=== PATIENT | female | born 1965 | race Caucasian/White ===

== ENCOUNTER 2019-07-05 12:45 | Inpatient (IN) | payer MEDICAID, SELFPAY ==
[2019-07-05] VITALS (16 sets, daily range): BP systolic 106–144; BP diastolic 64–85; PULSE 81–103; RESP 17–24; TEMP 36.6–37.7; O2SAT 91–98; BMI 38.4
--- NOTE | 2019-07-05 12:46 | XRR_ITS ---
PROCEDURE INFORMATION: Exam: XR Chest, 1 View Exam date and time: 07/05/2019 12:48 PM Age: 54 years old Clinical indication: Chest pain; Type not specified; Additional info: Cp TECHNIQUE: Imaging protocol: XR of the chest Views: 1 view. COMPARISON: CR Chest 1 [place] [id number] 05/03/2019 10:45 AM FINDINGS: Tubes, catheters and devices: Right-sided chest port is in unchanged position. Lungs: There is no focal consolidation. Pleural space: There is no significant pleural effusion. There is no discernible pneumothorax. Heart/Mediastinum: No cardiomegaly. Diaphragm: Elevation of the right hemidiaphragm is stable to minimally increased. Bones/joints: There are mild multilevel degenerative changes of the spine. Oval left-sided rib fractures are again noted. XR/XR chest 1V portable [id number] IMPRESSION: 1. No acute findings.
--- NOTE | 2019-07-05 12:46 | ECG_ITS ---
Measurements Intervals [place] Rate: 102 P: 34 UT: 145 QRS: -42 QRSD: 92 T: -1 QT: 337 QTc: 440 SINUS TACHYCARDIA LEFT AXIS DEVIATION [QRS AXIS < -30] PATTERN CONSISTENT WITH PULMONARY DISEASE VOLTAGE CRITERIA FOR LVH [MEETS CRITERIA IN ONE OF: R(aVL), S(V1), R(V5), R(V5 (V5/V6)+S(V1)] INTERPRETATION BASED ON A DEFAULT AGE OF 40 YEARS Compared to ECG 05/03/2019 15:59:57 Left-axis deviation now present Sinus rhythm no longer present Left anterior fascicular block no longer present Myocardial infarct finding no longer present Electronically Signed On 07-05-2019 20:26:52 DOCUMENT DESIGN SPECIALIST by Pierre Catalan M.D. [email or web address]
--- NOTE | 2019-07-05 13:25 | W.ED.GENADLT ---
HPI - General Adult General: Chief complaint: General Medical Stated complaint: chest heaviness, sob Time Seen by Provider: 07/05/19 13:08 Source: patient, family and RN notes reviewed Mode of arrival: wheelchair Limitations: no limitations History of Present Illness: HPI narrative: 54 yo female presents to ED with complaints of upper respiratory issues and severe low back pain (the patient has 1 kidney). She said her symptoms have been getting worse over this past week. The patient states she is having difficulty breathing and it is worse with exertion. The patient states she has metastatic breast cancer and it has spread to her stomach. She hasn't felt like moving or eating because of her symptoms and due to her symptoms she missed her last chemo appointment because she was too weak to travel to [place], [place], where her oncologist is located. She has been trying to transfer to [place] but has not been able to get an appointment. The patient states she will receive extra fluids with every chemo treatment. The daughter said the patient has a history of low HGB and will receive a blood transfusion about every other treatment. The patient said she had 2 units of blood 1.5 weeks ago. The patient states she takes morphine for pain control but she forgot to take her medication today. MD complaint: difficulty breathing Onset (ago): week(s) (1) Location: chest and back Radiation: back (low) Severity: severe Quality: sharp and constant Pain Consistency: constant Relieving factors: none Exacerbating factors: movement and other (talking) Associated symptoms: Reports chest pain, cough, short of breath and weakness; Deny headache(s), nausea, rash or vomiting Treatments prior to arrival: none Review of Systems General: Reports: 10 or more systems reviewed and unremarkable except in HPI and below Const: Denies: fever, chills or body aches Eyes: Reports: blind spots; Denies: change in vision or blurry vision ENMT: Denies: throat pain, enlarged tonsils, painful swallowing, hoarseness, mouth pain or swelling of lips/tongue Card: Reports: chest pain Resp: Denies: productive cough or non-productive cough GI: Denies: abdominal pain, nausea or vomiting : Denies: flank pain, difficulty urinating, painful urination, urinary frequency, urinary urgency or urinary hesitancy Musc: Reports: back pain and limited range of motion; Denies: neck pain or extremity swelling Skin/Breast: Denies: rash, itching or redness Neuro: Denies: headache or numbness in extremities Endo: Denies: excessive urination, excessive thirst or tired all the time PFSH ED PFSH: Statuses (acute, chronic, etc) shown below reflect problem list status as previously entered and may not be historically accurate Medical History (Updated 07/05/19 @ 22:31 by Vipin Duarte MD, [facility] [place] BRCA positive (Acute) Breast cancer metastasized to intra-abdominal lymph nodes (Acute) Breast cancer, right (Acute) Hypertension (Acute) Infiltrating ductal carcinoma (Acute) Left leg DVT (Acute) Peripheral neuropathy (Acute) Pulmonary embolism (Acute) Type 2 diabetes mellitus (Acute) Surgical History (Updated 07/05/19 @ 20:30 by Sara Simpson MD) H/O bilateral oophorectomy (Acute) H/O breast reconstruction (Acute) H/O left nephrectomy (Acute) H/O: hysterectomy (Acute) History of prophylactic mastectomy of left breast (Acute) History of right total mastectomy (Acute) Family History (Updated 07/05/19 @ 20:30 by Sara Simpson MD) Father CAD (coronary artery disease) Mother Diabetes Mother has type 2 diabetes, sister with breast cancer grandmother with breast cancer Social History (Updated 07/05/19 @ 20:30 by Sara Simpson MD) Smoking and tobacco status: former smoker Alcohol intake: never Substance/Drug Use: never Household members: significant other Physical Exam Const: COMMON NORMALS: no apparent distress, average body habitus, oriented x3, no limitations, healthy appearing, alert and well nourished HENMT: COMMON NORMALS: normocephalic, head/scalp atraumatic and moist oral mucous membranes HEAD & SCALP: normocephalic and atraumatic Eye: COMMON NORMALS: PERRL, EOMs intact bilaterally, conjunctivae normal and no scleral icterus CONJUNCTIVA: Yes conjunctivae normal PUPIL: Yes PERRL Neck/C-Spine: COMMON NORMALS: full ROM, supple, no meningeal signs, no JVD and no carotid bruits Chest: COMMONS NORMALS: inspection of chest normal and palpation of chest normal Resp: COMMON NORMALS: normal respiratory effort, no retractions, no use of accessory muscles, clear to auscultation bilaterally and percussion normal AUSCULTATION: clear to auscultation bilaterally PERCUSSION: percussion normal Cardio: COMMON NORMALS: no JVD, regular rate, regular rhythm, S1 normal heart sound, S2 normal heart sound, no gallops, no clicks, no murmurs, no rub and peripheral pulses 2+ throughout RATE: regular rate RHYTHM: regular rhythm HEART SOUNDS: S1 normal and S2 normal PERIPHERAL PULSES: pulses 2+ throughout GI: COMMON NORMALS: normal to inspection, nondistended, normoactive bowel sounds, soft to palpation, non-tender, no hepatosplenomegaly, no masses and no bruits PALPATION: Yes soft and Yes no hepatosplenomegaly : COMMON NORMALS: Yes no CVA tenderness BLADDER/KIDNEY EXAM: Yes no CVA tenderness Back/Pelvis: COMMON NORMALS: no CVA tenderness LUMBAR SPINE/LOWER BACK: Yes lumbar spinal tenderness Extremity: COMMON NORMALS: normal to inspection, full ROM, normal capillary refill, no calf tenderness and no pedal edema Neuro: COMMON NORMALS: oriented x3 SENSORIUM/ORIENTATION: Yes alert MENINGEAL SIGNS: Yes no meningeal signs Skin: COMMON NORMALS: no rashes or lesions noted, no wounds, skin turgor normal, no jaundice, no petechiae and no mottling GENERAL SKIN EXAM: no rashes or lesions noted and turgor normal Course Consultations: Consultation #1: Dr. Simpson, hospitalist. He kindly accepted the patient to his service. Vital Signs: Vital signs: Vital Signs Temperature 98.9 F 07/05/19 21:33 Pulse Rate 103 H 07/05/19 21:33 Respiratory Rate 24 H 07/05/19 21:33 Blood Pressure 136/79 07/05/19 21:33 Pulse Oximetry 91 07/05/19 21:33 MDM - General Adult MDM Narrative: Medical decision making narrative: 54 year old female who has metastatic breast cancer and presented to the emergency department with back pain and extreme weakness. Evaluation in the ED revealed severe anemia needing packed red blood cell transfusion. She is also hyponatremic, has acute kidney injury, and had elevated troponin but delta was flat. Her pain was difficult to control and needed several doses of intravenous narcotic analgesics to keep her pain under control. CT scan of her thoracic spine showed possible degenerative disease or osteoblastic lesions in her spine. CT of her abdomen showed enlarging of the retroperitoneal mass and pancreatic mass compared to the last time she had a CT scan done. She also has features possibly suggesting cholecystitis, however this has been seen in her previous scan. The patient has a history of PE but had not been taking her anticoagulation regularly due to financial costs. A VQ scan done was equivocal. She will resume her Eliquis. The patient also is trying to transition her oncology care from [place] to [place] but has been unable to get in to see the oncologist here locally. Because of all of the above she is admitted for pain control, hydration, blood transfusion, and scheduling an appointment with the oncologist locally. She also needs social support and social media strategist will be contacted to assist the patient. Medical Records: Attestation: I reviewed the patient's medical records. Lab Data: Attestation: I reviewed the patient's lab results. Labs: Lab Results 07/05/19 07/05/19 07/05/19 Range/Units 13:30 13:30 13:30 WBC 8.8 (4.0-10.0) 10^3/ uL RBC 2.60 L (4.1-5.3) 10^6/u L Hgb 6.2 L* (11.5-15.3) g/dL Hct 21.4 L (37.0-47.0) % MCV 82.3 (81-99) fL MCH 23.8 L (28.0-34.0) pg MCHC 29.0 L (30.0-36.0) g/dL RDW 21.5 H (12.1-15.1) % Plt Count 204 (130-400) 10^3/c mm MPV 9.3 (7.4-10.4) fL Neut % (Auto) 78.9 % Lymph % (Auto) 11.6 % Gregory % (Auto) 7.5 % Eos % (Auto) 0.7 % Baso % (Auto) 0.7 % Neut # (Auto) 7.0 (1.8-7.7) 10^3/u L Lymph # (Auto) 1.0 (0.8-4.8) 10^3/u L Gregory # (Auto) 0.7 (0.2-0.9) 10^3/u L Eos # (Auto) 0.1 (0.0-0.8) 10^3/u L Baso # (Auto) 0.1 (0.0-0.1) 10^3/u L Nucleated RBC % (a uto) 0 % Nucleated RBCs # 0.0 /100WBC D-Dimer (0-0.59) ug/mIFE U Sodium 129 L (136-145) mmol/L Potassium 4.3 (3.5-5.1) mmol/L Chloride 92 L (98-107) mmol/L Carbon Dioxide 19 L (22-29) mmol/L Anion Gap 22.3 H (5-19) BUN 19 (6-20) mg/dL Creatinine 1.3 H (0.5-0.9) mg/dL GFR Calculation 42.4 L (90-130) mL/min Glucose 464 H (74-109) mg/dL Calcium 9.3 (8.5-10.5) mg/dL Total Bilirubin 0.5 (0.15-1.2) mg/dL AST 13 (0-32) U/L ALT 6 (0-33) U/L Alkaline Phosphata se 191 H (35-105) IU/L Troponin T Baselin e 50 H (0-10) ng/mL Troponin T 120 Min [place] (0-10) ng/mL Delta Troponin T (0-10) ABS# NT-Pro-B Natriuret Pep 2146 H (0-125) pg/mL Total Protein 8.1 (6.6-8.7) g/dL Albumin 2.6 L (3.5-5.2) g/dL Globulin 5.5 H (1.3-4.6) g/dL Urine Color (Yellow) Urine Appearance (CLEAR) Urine pH (5-7) Ur Specific Gravit y (1.005-1.030) Urine Protein (Negative) Urine Glucose (UA) (Normal) Urine Ketones (Negative) Urine Occult Blood (Negative) Urine Nitrate (Negative) Urine Bilirubin (NEGATIVE) Urine Urobilinogen (Negative) mg/dL Ur Leukocyte Ruby ase (Negative) Urine RBC (0-2) /hpf Urine WBC (0-5) /hpf Ur Squamous Epith Cells (0-5) Urine Bacteria (NONE) Urine Mucus Blood Type Antibody Screen Crossmatch 07/05/19 07/05/19 07/05/19 Range/Units 13:30 14:25 15:48 WBC (4.0-10.0) 10^3/ uL RBC (4.1-5.3) 10^6/u L Hgb (11.5-15.3) g/dL Hct (37.0-47.0) % MCV (81-99) fL MCH (28.0-34.0) pg MCHC (30.0-36.0) g/dL RDW (12.1-15.1) % Plt Count (130-400) 10^3/c mm MPV (7.4-10.4) fL Neut % (Auto) % Lymph % (Auto) % Gregory % (Auto) % Eos % (Auto) % Baso % (Auto) % Neut # (Auto) (1.8-7.7) 10^3/u L Lymph # (Auto) (0.8-4.8) 10^3/u L Gregory # (Auto) (0.2-0.9) 10^3/u L Eos # (Auto) (0.0-0.8) 10^3/u L Baso # (Auto) (0.0-0.1) 10^3/u L Nucleated RBC % (a uto) % Nucleated RBCs # /100WBC D-Dimer >= 20.00 H (0-0.59) ug/mIFE U Sodium (136-145) mmol/L Potassium (3.5-5.1) mmol/L Chloride (98-107) mmol/L Carbon Dioxide (22-29) mmol/L Anion Gap (5-19) BUN (6-20) mg/dL Creatinine (0.5-0.9) mg/dL GFR Calculation (90-130) mL/min Glucose (74-109) mg/dL Calcium (8.5-10.5) mg/dL Total Bilirubin (0.15-1.2) mg/dL AST (0-32) U/L ALT (0-33) U/L Alkaline Phosphata se (35-105) IU/L Troponin T Baselin e (0-10) ng/mL Troponin T 120 Min [place] 46.07 H (0-10) ng/mL Delta Troponin T -3.93 L (0-10) ABS# NT-Pro-B Natriuret Pep (0-125) pg/mL Total Protein (6.6-8.7) g/dL Albumin (3.5-5.2) g/dL Globulin (1.3-4.6) g/dL Urine Color (Yellow) Urine Appearance (CLEAR) Urine pH (5-7) Ur Specific Gravit y (1.005-1.030) Urine Protein (Negative) Urine Glucose (UA) (Normal) Urine Ketones (Negative) Urine Occult Blood (Negative) Urine Nitrate (Negative) Urine Bilirubin (NEGATIVE) Urine Urobilinogen (Negative) mg/dL Ur Leukocyte Ruby ase (Negative) Urine RBC (0-2) /hpf Urine WBC (0-5) /hpf Ur Squamous Epith Cells (0-5) Urine Bacteria (NONE) Urine Mucus Blood Type O Positive Antibody Screen Negative Crossmatch See Detail 07/05/19 Range/Units 19:00 WBC (4.0-10.0) 10^3/ uL RBC (4.1-5.3) 10^6/u L Hgb (11.5-15.3) g/dL Hct (37.0-47.0) % MCV (81-99) fL MCH (28.0-34.0) pg MCHC (30.0-36.0) g/dL RDW (12.1-15.1) % Plt Count (130-400) 10^3/c mm MPV (7.4-10.4) fL Neut % (Auto) % Lymph % (Auto) % Gregory % (Auto) % Eos % (Auto) % Baso % (Auto) % Neut # (Auto) (1.8-7.7) 10^3/u L Lymph # (Auto) (0.8-4.8) 10^3/u L Gregory # (Auto) (0.2-0.9) 10^3/u L Eos # (Auto) (0.0-0.8) 10^3/u L Baso # (Auto) (0.0-0.1) 10^3/u L Nucleated RBC % (a uto) % Nucleated RBCs # /100WBC D-Dimer (0-0.59) ug/mIFE U Sodium (136-145) mmol/L Potassium (3.5-5.1) mmol/L Chloride (98-107) mmol/L Carbon Dioxide (22-29) mmol/L Anion Gap (5-19) BUN (6-20) mg/dL Creatinine (0.5-0.9) mg/dL GFR Calculation (90-130) mL/min Glucose (74-109) mg/dL Calcium (8.5-10.5) mg/dL Total Bilirubin (0.15-1.2) mg/dL AST (0-32) U/L ALT (0-33) U/L Alkaline Phosphata se (35-105) IU/L Troponin T Baselin e (0-10) ng/mL Troponin T 120 Min [place] (0-10) ng/mL Delta Troponin T (0-10) ABS# NT-Pro-B Natriuret Pep (0-125) pg/mL Total Protein (6.6-8.7) g/dL Albumin (3.5-5.2) g/dL Globulin (1.3-4.6) g/dL Urine Color Yellow (Yellow) Urine Appearance Cloudy (CLEAR) Urine pH 6 (5-7) Ur Specific Gravit y 1.015 (1.005-1.030) Urine Protein 3+ H (Negative) Urine Glucose (UA) 4+ H (Normal) Urine Ketones Negative (Negative) Urine Occult Blood Neg (Negative) Urine Nitrate Negative (Negative) Urine Bilirubin Neg (NEGATIVE) Urine Urobilinogen Norm (Negative) mg/dL Ur Leukocyte Ruby ase Negative (Negative) Urine RBC 0-4 H (0-2) /hpf Urine WBC 10-15 H (0-5) /hpf Ur Squamous Epith Cells 5-10 H (0-5) Urine Bacteria 2+ H (NONE) Urine Mucus 2+ Blood Type Antibody Screen Crossmatch Imaging Data^: Other CT: Radiologist's impression: [address] [address] [address] Scan Report Signed Patient: Maxine Villalba #: [id number] : 1965Acct#:[id number] Age/Sex: 54 / FADM Date: 07/05/19 Loc: ERRoom/Bed: Attending Dr: Ordering Provider/Ordering MD: Vipin Duarte MD, [facility] [place] of Service: 07/05/19 Procedure(s): CT lumbar spine wo con* [id number] Accession Number(s): [id number] Report Number: [id number] PROCEDURE INFORMATION: Exam: CT Lumbar Spine Without Contrast Exam date and time: 07/05/2019 3:28 PM Age: 54 years old Clinical indication: Low back pain; Patient HX: Sudden onset of severe back pain. History of metastatic breast cancer. ; Additional info: Back pain, patient with metastatic breast cancer TECHNIQUE: Imaging protocol: Computed tomography images of the lumbar spine without contrast. Total DLP: 2397.86 mGy-cm Radiation optimization: All CT scans at this facility use at least one of these dose optimization techniques: automated exposure control; mA and/or kV adjustment per patient size (includes targeted exams where dose is matched to clinical indication); or iterative reconstruction. COMPARISON: No relevant prior studies available. FINDINGS: Vertebrae: Vertebral body heights are preserved. There is no evidence of acute fracture or traumatic subluxation. There is moderate facet arthrosis at the L5-S1 level. There is mild sclerosis along the anterior inferior endplate of T12. No other suspicious osseous findings. Discs/Spinal canal/Neural foramina: There is disc space narrowing and vacuum disc phenomenon at the T11-T12 and T12-L1 levels. Lumbar intervertebral disc space heights are preserved. There is no high-grade osseous central canal or neural foraminal stenosis. Kidneys and ureters: There is partially imaged right perinephric stranding. There is lobulated soft tissue density anterior to the lumbar spine from the L1 through L4 levels. Soft tissues: Metallic clips are noted within the left upper abdomen. The left kidney is not visualized and may be surgically absent. CT/CT lumbar spine wo con* [id number] IMPRESSION: 1. No CT evidence of acute fracture or traumatic subluxation involving the lumbar spine. 2. Mild-moderate facet arthrosis at the L5-S1 level. 3. Partially imaged right perinephric stranding, which is of uncertain clinical significance. There is questionable lobulated soft tissue density anterior to the lumbar spine from the L1 through L4 levels. Although findings may reflect overlap/summation, given the patient's history of metastatic breast cancer, retroperitoneal adenopathy versus retroperitoneal mass cannot be excluded. Correlate with dedicated CT of the abdomen and pelvis as warranted. 4. For thoracic findings please see dedicated CT dated same day. Radiation Dose CTDIVOL = (mGy): DLP = 2397.86 (mGy-cm) Dictated By:Tonny Franklin MD Signed By:Tonny Franklin MDSigned Date/Time:07/05/19 1631 DD/ [facility] [address] [place] [address] CT Scan Report Signed Patient: Maxine Villalba #: [id number] : 1965Acct#:[id number] Age/Sex: 54 / FADM Date: 07/05/19 Loc: ERRoom/Bed: Attending Dr: Ordering Provider/Ordering MD: Vipin Duarte MD, [facility] [facility] [place] of Service: 07/05/19 Procedure(s): CT thoracic spin wo con* [id number] Accession Number(s): [id number] Report Number: [id number] PROCEDURE INFORMATION: Exam: CT Thoracic Spine Without Contrast Exam date and time: 07/05/2019 3:29 PM Age: 54 years old Clinical indication: Pain in thoracic spine; Prior surgery; Surgery type: Chest port; Patient HX: Sudden onset of severe back pain. History of metastatic breast cancer. ; Additional info: Back pain. Patient with metastatic breast cancer TECHNIQUE: Imaging protocol: Computed tomography images of the thoracic spine without contrast. Total DLP: 2299.32 mGy-cm Radiation optimization: All CT scans at this facility use at least one of these dose optimization techniques: automated exposure control; mA and/or kV adjustment per patient size (includes targeted exams where dose is matched to clinical indication); or iterative reconstruction. COMPARISON: No relevant prior studies available. FINDINGS: Tubes, catheters and devices: Partially imaged right-sided Port-A-Cath is noted with tip at the level of the cavoatrial junction. Vertebrae: Small multilevel Schmorl's nodes are noted. Vertebral body heights are otherwise preserved. There is no evidence of acute fracture. There are multilevel degenerative changes with endplate osteophyte formation and facet arthrosis. There are multiple subtle sclerotic regions scattered throughout the thoracic spine, most notably along the anterior inferior aspect of the T12 vertebral body. Discs/Spinal canal/Neural foramina: There is mild multilevel disc space narrowing with vacuum disc phenomenon, greatest involving the lower thoracic spine. There is no high-grade osseous central canal or neural foraminal stenosis throughout the thoracic spine. Soft tissues: There is a partially imaged 5.8 x 3.4 cm left supraclavicular mass (image 14, series 3). Lungs: There is bilateral dependent subsegmental atelectasis. There is mild biapical pleural parenchymal thickening. Pleural space: There is a small right pleural effusion. Kidneys and ureters: There is mild right perinephric stranding. Adrenals: There is mild nodular thickening of the left adrenal gland. CT/CT thoracic spin wo con* [id number] IMPRESSION: 1. No CT evidence of an acute osseous abnormality. 2. Mild-moderate multilevel degenerative change, greatest involving the lower thoracic spine. 3. Subtle sclerotic lesions scattered throughout the thoracic spine may reflect a component of degenerative change. Given the patient's history of metastatic breast cancer, osteoblastic disease cannot be entirely excluded. Correlation with prior imaging is suggested with bone scan as warranted. 4. Partially imaged right perinephric stranding. If right flank symptoms are present, further evaluation with abdominal/pelvic CT could be performed. 5. Partially imaged left supraclavicular mass. Correlation with prior imaging is suggested with dedicated CT as warranted. 6. Small right pleural effusion. 7. Mild nonspecific nodular thickening of the left adrenal gland. Correlation with prior imaging suggested. Radiation Dose CTDIVOL = (mGy): DLP = 2299.32 (mGy-cm) Dictated By:Tonny Franklin MD Signed By:Tonny Franklin MDSigned Date/Time:07/05/19 1642 DD/ Other Imaging: Radiologist's impression: [address] [address] Nuclear Medicine Report Signed Patient: Maxine Villalba #: [id number] : 1965Acct#:[id number] Age/Sex: 54 / FADM Date: 07/05/19 Loc: ERRoom/Bed: Attending Dr: Ordering Provider/Ordering MD: Vipin Duarte MD, [facility] [facility] [place] of Service: 07/05/19 Procedure(s): NM pul vent and perfus* [id number] Accession Number(s): [id number] Report Number: [id number] PROCEDURE INFORMATION: Exam: NM Lung Ventilation and Perfusion Imaging Exam date and time: 07/05/2019 3:55 PM Age: 54 years old Clinical indication: Pain; Other: Multiple areas; Prior surgery; Surgery date: 6+ months; Surgery type: Bilat mastectomy; Patient HX: Metastatic RT breast CA; Additional info: SOB, elevated d-dimer. Prior pe. Stopped her anticoagulatio TECHNIQUE: Imaging protocol: Nuclear pulmonary ventilation with aerosol or gas was performed followed by perfusion. Views: Ventilation acquired with multiple projections. Perfusion acquired with multiple projections. Radiopharmaceutical: 30.4 mCi of Tc-99m DTPA, inhaled. 5.3 mCi of Tc-99m MAA, IV. COMPARISON: CR (CHEST, ) 07/05/2019 1:04 PM FINDINGS: Ventilation: There is a moderate size defect within the left basilar segment. Perfusion: There is a moderate size defect within the left basilar segment. NM/NM pul vent and perfus* [id number] IMPRESSION: 1. Intermediate probability V/Q is equivocal for PE. Correlate with CT pulmonary angiography as warranted. Dictated By:Tonny Franklin MD Signed By:Tonny Franklin MDSigned Date/Time:07/05/19 1705 DD/ CXR: Radiologist's impression: [address] [address] XRay Report Signed Patient: Maxine Villalba #: [id number] : 1965Acct#:[id number] Age/Sex: 54 / FADM Date: 07/05/19 [facility] Attending Dr: Ordering Provider/Ordering MD: Zane Haskins MD Date of Service: 07/05/19 Procedure(s): XR chest 1V portable [id number] Accession Number(s): [id number] Report Number: [id number] PROCEDURE INFORMATION: Exam: XR Chest, 1 View Exam date and time: 07/05/2019 12:48 PM Age: 54 years old Clinical indication: Chest pain; Type not specified; Additional info: Cp TECHNIQUE: Imaging protocol: XR of the chest Views: 1 view. COMPARISON: CR Chest 1 [place] [id number] 05/03/2019 10:45 AM FINDINGS: Tubes, catheters and devices: Right-sided chest port is in unchanged position. Lungs: There is no focal consolidation. Pleural space: There is no significant pleural effusion. There is no discernible pneumothorax. Heart/Mediastinum: No cardiomegaly. Diaphragm: Elevation of the right hemidiaphragm is stable to minimally increased. Bones/joints: There are mild multilevel degenerative changes of the spine. Oval left-sided rib fractures are again noted. XR/XR chest 1V portable [id number] IMPRESSION: 1. No acute findings. Dictated By:Tonny Franklin MD Signed By:Tonny Franklin MDSigned Date/Time:07/05/19 1346 DD/ CT Abd/Pel: Radiologist's impression: [place] [address] CT Scan Report Signed Patient: Maxine Villalba #: [id number] : 1965Acct#:[id number] Age/Sex: 54 / FADM Date: 07/05/19 Loc: ERRoom/Bed: Attending Dr: Ordering Provider/Ordering MD: Vipin Duarte MD, [facility] [place] of Service: 07/05/19 Procedure(s): CT abdomen pelvis wo con [id number] Accession Number(s): [id number] Report Number: [id number] PROCEDURE INFORMATION: Exam: CT Abdomen And Pelvis Without Contrast Exam date and time: 07/05/2019 5:37 PM Age: 54 years old Clinical indication: Abdominal pain; Generalized; Prior surgery; Surgery type: Breast; Patient HX: Trainsient abd pain; Additional info: Metastatic breast cancer, abdominal pain TECHNIQUE: Imaging protocol: Computed tomography of the abdomen and pelvis without contrast. Total DLP: 2059.72 mGy-cm Radiation optimization: All CT scans at this facility use at least one of these dose optimization techniques: automated exposure control; mA and/or kV adjustment per patient size (includes targeted exams where dose is matched to clinical indication); or iterative reconstruction. COMPARISON: KO CT abdomen pelvis w con* [id number] 03/16/2019 5:47 PM FINDINGS: Lungs: There is a subtle ground-glass opacity within the anterior right middle lobe (image 2, series 2). The visualized lung bases are otherwise clear. Liver: There is mild unchanged intrahepatic ductal dilation. Gallbladder and bile ducts: Cholelithiasis is again noted. There is moderate gallbladder distention with unchanged wall thickening and adjacent inflammatory stranding. There is mild intrahepatic ductal dilation. Pancreas: There is been interval progression of the previously described heterogeneous mass involving the pancreatic head and kaleb hepatis. Spleen: There is unchanged splenomegaly. Adrenals: Nodular thickening of the left adrenal gland appears stable to minimally increased, concerning for metastatic disease. Kidneys and ureters: The left kidney is surgically absent. Multiple clips are noted within the left renal fossa. There is a mild right perinephric stranding. There is no evidence of hydronephrosis. Stomach and bowel: No obstruction. No mucosal thickening. Appendix: No evidence of appendicitis. Intraperitoneal space: No free air. There is a small amount of right perihepatic and right pericolic fluid. Vasculature: Unremarkable. No abdominal aortic aneurysm. Lymph nodes: There has been interval progression of bulky retroperitoneal, upper abdominal and periaortic lymphadenopathy with the largest conglomeration measuring approximately 13.8 x 8.3 cm in the axial plane with associated mass effect (image 29, series 2). Hypoattenuating regions centrally suggest a component of necrosis. Bulky right retroperitoneal adenopathy has also progressed. Bladder: Unremarkable as visualized. Reproductive: Unremarkable as visualized. Bones/joints: There are no acute osseous findings. Subtle sclerotic regions within the lower thoracic spine are again noted. Soft tissues: Partially imaged bilateral breast implants are in place. CT/CT abdomen pelvis wo con [id number] IMPRESSION: 1. Cholelithiasis with unchanged distention of the gallbladder with gallbladder wall thickening and adjacent inflammatory stranding. There is mild unchanged intrahepatic ductal dilation. There is a small amount of right Cheli hepatic fluid. Constellation of findings can be associated with acute cholecystitis. Correlate with right upper quadrant ultrasound as warranted. 2. There has been interval progression of the previously described large heterogeneous mass involving the pancreatic head, kaleb hepatis and gallbladder. There has been interval progression of bulky retroperitoneal and upper abdominal lymphadenopathy with associated mass effect. Subtle hypo attenuating regions centrally suggest a component of early necrosis. 3. Nodular thickening of the left adrenal gland appears stable to minimally progressed concerning for metastatic disease. 4. Subtle ground-glass opacity within the anterior right middle lobe likely reflects atelectasis. Nonspecific inflammatory or infectious change can have a similar appearance and clinical correlation is suggested. Radiation Dose CTDIVOL = (mGy): DLP = 2059.72 (mGy-cm) Dictated By:Tonny Franklin MD Signed By:Tonny Franklin MDSigned Date/Time:07/05/19 1824 DD/ Discharge Plan Discharge Patient Disposition: Admitted As Inpatient Admit Provider: Sara Simpson Clinical Impression: Anemia, Acute hyponatremia, Acute kidney injury, Metastatic breast cancer, History of pulmonary embolism Condition: Stable Interventions: ED Discharge Assessment Last Done: 07/05/19 20:45 Discharge Date/Time: 07/05/19 21:19 Coding Level of Care Code ED Electric Meter Tester Helper for Chg Fwd Exam Problem Focused
[2019-07-05] MEDS: morphine 4 mg/mL SDV 1 mL 10 MG IVP ×2 (13:52→15:53)
[2019-07-05 13:54] LABS: Basophils # 0.1 10^3/uL (0.0-0.1); Basophils % 0.7 %; Eosinophils # 0.1 10^3/uL (0.0-0.8); Eosinophils % 0.7 %; Hematocrit 21.4 % (37.0-47.0); Lymphocytes % 11.6 %; Mean Corpuscular Hemoglobin 23.8 pg (28.0-34.0); Mean Corpuscular Volume 82.3 fL (81-99); Mean Platelet Volume 9.3 fL (7.4-10.4); Monocytes # 0.7 10^3/uL (0.2-0.9); Monocytes % 7.5 %; Neutrophils % 78.9 %; Nucleated Red Blood Cells % 0 %; Platelet Count 204 10^3/cmm (130-400); Red Cell Distribution Width 21.5 % (12.1-15.1); White Blood Count 8.8 10^3/uL (4.0-10.0)
[2019-07-05 13:59] LABS: Hemoglobin 6.2 g/dL (11.5-15.3)
--- NOTE | 2019-07-05 14:11 | PC.NURSE ---
PORT ACCESS OBTAINED WITHOUT DIFFICULTY, 19G 1 INCH PORT-A-CATH INSERTED, GOOD BLOOD RETURN, FLUSHES EASILY. BLOOD DRAWN FROM PORT FOR LAB. PT TOLERATED WELL.
[2019-07-05 14:19] LABS: Troponin(5th) Baseline 50 ng/mL (0-10)
[2019-07-05 14:26] LABS: Alanine Aminotransferase 6 U/L (0-33); Albumin Level 2.6 g/dL (3.5-5.2); Alkaline Phosphatase 191 IU/L (35-105); Anion Gap 22.3 (5-19); Aspartate Amino Transferase 13 U/L (0-32); Blood Urea Nitrogen 19 mg/dL (6-20); Calcium 9.3 mg/dL (8.5-10.5); Carbon Dioxide 19 mmol/L (22-29); Chloride 92 mmol/L (98-107); Globulin 5.5 g/dL (1.3-4.6); Glomerular Filtration Rate 42.4 mL/min (90-130); Glucose 464 mg/dL (74-109); NT Pro B Type Natriuretic Pept 2146 pg/mL (0-125); Potassium 4.3 mmol/L (3.5-5.1); Sodium 129 mmol/L (136-145); Total Bilirubin 0.5 mg/dL (0.15-1.2); Total Protein 8.1 g/dL (6.6-8.7)
[2019-07-05 14:29] LABS: D Dimer >= 20.00 ug/mIFEU (0-0.59)
--- NOTE | 2019-07-05 14:32 | PC.NURSE ---
EKG performed and shown to ED physician.
--- NOTE | 2019-07-05 14:37 | PC.PHAR ---
PT STATES SHE IS UNSURE OF ALL THE MEDICATIONS SHE TAKES, PT STATES SHE TAKES 2 KINDS OF INSULIN BUT ISNT SURE OF THE NAMES, PT STATES SHE FILLS MEDS AT [facility] AND [facility] IS NOT OPEN TODAY TO VERIFY MEDS
--- NOTE | 2019-07-05 14:39 | NMR_ITS ---
PROCEDURE INFORMATION: Exam: NM Lung Ventilation and Perfusion Imaging Exam date and time: 07/05/2019 3:55 PM Age: 54 years old Clinical indication: Pain; Other: Multiple areas; Prior surgery; Surgery date: 6+ months; Surgery type: Bilat mastectomy; Patient HX: Metastatic RT breast CA; Additional info: SOB, elevated d-dimer. Prior pe. Stopped her anticoagulatio TECHNIQUE: Imaging protocol: Nuclear pulmonary ventilation with aerosol or gas was performed followed by perfusion. Views: Ventilation acquired with multiple projections. Perfusion acquired with multiple projections. Radiopharmaceutical: 30.4 mCi of Tc-99m DTPA, inhaled. 5.3 mCi of Tc-99m MAA, IV. COMPARISON: CR (CHEST, ) 07/05/2019 1:04 PM FINDINGS: Ventilation: There is a moderate size defect within the left basilar segment. Perfusion: There is a moderate size defect within the left basilar segment. NM/NM pul vent and perfus* [id number] IMPRESSION: 1. Intermediate probability V/Q is equivocal for PE. Correlate with CT pulmonary angiography as warranted.
--- NOTE | 2019-07-05 14:46 | ECG_ITS ---
Measurements Intervals [place] Rate: 95 P: 29 WV: 142 QRS: 105 QRSD: 104 T: 57 QT: 372 QTc: 469 SINUS RHYTHM PATTERN CONSISTENT WITH PULMONARY DISEASE POSSIBLE RIGHT VENTRICULAR HYPERTROPHY [SOME/ALL OF: PROMINENT R IN V1, LATE HERNANDEZ TRANSITION, RAD, ALMAS, SSS] POSSIBLE INFERIOR MYOCARDIAL INFARCTION , PROBABLY OLD [30 ms Q WAVE IN II/aVF] INTERPRETATION BASED ON A DEFAULT AGE OF 40 YEARS Compared to ECG 05/03/2019 15:59:57 Atrial abnormality now present Left anterior fascicular block no longer present Myocardial infarct finding still present Electronically Signed On 07-06-2019 21:04:06 PATIENT RESOURCE SPECIALIST by Pierre Catalan M.D. [id number]
--- NOTE | 2019-07-05 15:18 | CTR_ITS ---
PROCEDURE INFORMATION: Exam: CT Lumbar Spine Without Contrast Exam date and time: 07/05/2019 3:28 PM Age: 54 years old Clinical indication: Low back pain; Patient HX: Sudden onset of severe back pain. History of metastatic breast cancer. ; Additional info: Back pain, patient with metastatic breast cancer TECHNIQUE: Imaging protocol: Computed tomography images of the lumbar spine without contrast. Total DLP: 2397.86 mGy-cm Radiation optimization: All CT scans at this facility use at least one of these dose optimization techniques: automated exposure control; mA and/or kV adjustment per patient size (includes targeted exams where dose is matched to clinical indication); or iterative reconstruction. COMPARISON: No relevant prior studies available. FINDINGS: Vertebrae: Vertebral body heights are preserved. There is no evidence of acute fracture or traumatic subluxation. There is moderate facet arthrosis at the L5-S1 level. There is mild sclerosis along the anterior inferior endplate of T12. No other suspicious osseous findings. Discs/Spinal canal/Neural foramina: There is disc space narrowing and vacuum disc phenomenon at the T11-T12 and T12-L1 levels. Lumbar intervertebral disc space heights are preserved. There is no high-grade osseous central canal or neural foraminal stenosis. Kidneys and ureters: There is partially imaged right perinephric stranding. There is lobulated soft tissue density anterior to the lumbar spine from the L1 through L4 levels. Soft tissues: Metallic clips are noted within the left upper abdomen. The left kidney is not visualized and may be surgically absent. CT/CT lumbar spine wo con* [id number]: 1[address] No CT evidence of acute fracture or traumatic subluxation involving the lumbar spine. 2. Mild-moderate facet arthrosis at the L5-S1 level. 3. Partially imaged right perinephric stranding, which is of uncertain clinical significance. There is questionable lobulated soft tissue density anterior to the lumbar spine from the L1 through L4 levels. Although findings may reflect overlap/summation, given the patient's history of metastatic breast cancer, retroperitoneal adenopathy versus retroperitoneal mass cannot be excluded. Correlate with dedicated CT of the abdomen and pelvis as warranted. 4. For thoracic findings please see dedicated CT dated same day. Radiation Dose CTDIVOL = (mGy): DLP = 2397.86 (mGy-cm)
--- NOTE | 2019-07-05 15:18 | CTR_ITS ---
PROCEDURE INFORMATION: Exam: CT Thoracic Spine Without Contrast Exam date and time: 07/05/2019 3:29 PM Age: 54 years old Clinical indication: Pain in thoracic spine; Prior surgery; Surgery type: Chest port; Patient HX: Sudden onset of severe back pain. History of metastatic breast cancer. ; Additional info: Back pain. Patient with metastatic breast cancer TECHNIQUE: Imaging protocol: Computed tomography images of the thoracic spine without contrast. Total DLP: 2299.32 mGy-cm Radiation optimization: All CT scans at this facility use at least one of these dose optimization techniques: automated exposure control; mA and/or kV adjustment per patient size (includes targeted exams where dose is matched to clinical indication); or iterative reconstruction. COMPARISON: No relevant prior studies available. FINDINGS: Tubes, catheters and devices: Partially imaged right-sided Port-A-Cath is noted with tip at the level of the cavoatrial junction. Vertebrae: Small multilevel Schmorl's nodes are noted. Vertebral body heights are otherwise preserved. There is no evidence of acute fracture. There are multilevel degenerative changes with endplate osteophyte formation and facet arthrosis. There are multiple subtle sclerotic regions scattered throughout the thoracic spine, most notably along the anterior inferior aspect of the T12 vertebral body. Discs/Spinal canal/Neural foramina: There is mild multilevel disc space narrowing with vacuum disc phenomenon, greatest involving the lower thoracic spine. There is no high-grade osseous central canal or neural foraminal stenosis throughout the thoracic spine. Soft tissues: There is a partially imaged 5.8 x 3.4 cm left supraclavicular mass (image 14, series 3). Lungs: There is bilateral dependent subsegmental atelectasis. There is mild biapical pleural parenchymal thickening. Pleural space: There is a small right pleural effusion. Kidneys and ureters: There is mild right perinephric stranding. Adrenals: There is mild nodular thickening of the left adrenal gland. CT/CT thoracic spin wo con* [id number]: 1[address] No CT evidence of an acute osseous abnormality. 2. Mild-moderate multilevel degenerative change, greatest involving the lower thoracic spine. 3. Subtle sclerotic lesions scattered throughout the thoracic spine may reflect a component of degenerative change. Given the patient's history of metastatic breast cancer, osteoblastic disease cannot be entirely excluded. Correlation with prior imaging is suggested with bone scan as warranted. 4. Partially imaged right perinephric stranding. If right flank symptoms are present, further evaluation with abdominal/pelvic CT could be performed. 5. Partially imaged left supraclavicular mass. Correlation with prior imaging is suggested with dedicated CT as warranted. 6. Small right pleural effusion. 7. Mild nonspecific nodular thickening of the left adrenal gland. Correlation with prior imaging suggested. Radiation Dose CTDIVOL = (mGy): DLP = 2299.32 (mGy-cm)
[2019-07-05 16:20] LABS: Troponin 5 2HR 46.07 ng/mL (0-10)
[2019-07-05 16:21] LABS: Troponin 5 2HR Delta -3.93 ABS# (0-10)
--- NOTE | 2019-07-05 17:27 | CTR_ITS ---
PROCEDURE INFORMATION: Exam: CT Abdomen And Pelvis Without Contrast Exam date and time: 07/05/2019 5:37 PM Age: 54 years old Clinical indication: Abdominal pain; Generalized; Prior surgery; Surgery type: Breast; Patient HX: Trainsient abd pain; Additional info: Metastatic breast cancer, abdominal pain TECHNIQUE: Imaging protocol: Computed tomography of the abdomen and pelvis without contrast. Total DLP: 2059.72 mGy-cm Radiation optimization: All CT scans at this facility use at least one of these dose optimization techniques: automated exposure control; mA and/or kV adjustment per patient size (includes targeted exams where dose is matched to clinical indication); or iterative reconstruction. COMPARISON: KO CT abdomen pelvis w con* [id number] 03/16/2019 5:47 PM FINDINGS: Lungs: There is a subtle ground-glass opacity within the anterior right middle lobe (image 2, series 2). The visualized lung bases are otherwise clear. Liver: There is mild unchanged intrahepatic ductal dilation. Gallbladder and bile ducts: Cholelithiasis is again noted. There is moderate gallbladder distention with unchanged wall thickening and adjacent inflammatory stranding. There is mild intrahepatic ductal dilation. Pancreas: There is been interval progression of the previously described heterogeneous mass involving the pancreatic head and kaleb hepatis. Spleen: There is unchanged splenomegaly. Adrenals: Nodular thickening of the left adrenal gland appears stable to minimally increased, concerning for metastatic disease. Kidneys and ureters: The left kidney is surgically absent. Multiple clips are noted within the left renal fossa. There is a mild right perinephric stranding. There is no evidence of hydronephrosis. Stomach and bowel: No obstruction. No mucosal thickening. Appendix: No evidence of appendicitis. Intraperitoneal space: No free air. There is a small amount of right perihepatic and right pericolic fluid. Vasculature: Unremarkable. No abdominal aortic aneurysm. Lymph nodes: There has been interval progression of bulky retroperitoneal, upper abdominal and periaortic lymphadenopathy with the largest conglomeration measuring approximately 13.8 x 8.3 cm in the axial plane with associated mass effect (image 29, series 2). Hypoattenuating regions centrally suggest a component of necrosis. Bulky right retroperitoneal adenopathy has also progressed. Bladder: Unremarkable as visualized. Reproductive: Unremarkable as visualized. Bones/joints: There are no acute osseous findings. Subtle sclerotic regions within the lower thoracic spine are again noted. Soft tissues: Partially imaged bilateral breast implants are in place. CT/CT abdomen pelvis wo con [id number] IMPRESSION: 1. Cholelithiasis with unchanged distention of the gallbladder with gallbladder wall thickening and adjacent inflammatory stranding. There is mild unchanged intrahepatic ductal dilation. There is a small amount of right Cheli hepatic fluid. Constellation of findings can be associated with acute cholecystitis. Correlate with right upper quadrant ultrasound as warranted. 2. There has been interval progression of the previously described large heterogeneous mass involving the pancreatic head, kaleb hepatis and gallbladder. There has been interval progression of bulky retroperitoneal and upper abdominal lymphadenopathy with associated mass effect. Subtle hypo attenuating regions centrally suggest a component of early necrosis. 3. Nodular thickening of the left adrenal gland appears stable to minimally progressed concerning for metastatic disease. 4. Subtle ground-glass opacity within the anterior right middle lobe likely reflects atelectasis. Nonspecific inflammatory or infectious change can have a similar appearance and clinical correlation is suggested. Radiation Dose CTDIVOL = (mGy): DLP = 2059.72 (mGy-cm)
[2019-07-05] MEDS: HYDROmorphone 1 mg/mL INJ 1 mL IVP ×2 (19:19→21:18)
[2019-07-05] MEDS: ondansetron 2 mg/ML SDV 2 mL 4 MG IVP (19:19)
[2019-07-05] MEDS: sodium chloride 0.9% 100 ML 75 ML (19:22)
[2019-07-05 19:37] LABS: Protein Urine 3+ (Negative); Specific Gravity, Urine 1.015 (1.005-1.030); Urine Appearance Cloudy (CLEAR); Urine Color Yellow (Yellow); pH Urine 6 (5-7)
[2019-07-05 19:38] LABS: Add Urine Culture? Yes; Add Urine Microscopic? YES; Bacteria Urine 2+; Bilirubin Urine Neg (NEGATIVE); Blood Urine Neg (Negative); Glucose Urine UA 4+ (Normal); Ketones Urine Negative (Negative); Leukocyte Esterase Urine Negative (Negative); Mucus Urine 2+; Nitrate Urine Negative (Negative); RBC Urine 0-4 /hpf (0-2); Urobilinogen Urine Norm (Negative)
--- NOTE | 2019-07-05 20:26 | P.HP_ITS ---
Providers/Chief Complaint Admitting Physician: Sara Simpson MD Primary Care Provider: Sofy Cruz, LEAD SPRINK[employer]ER-C Chief Complaint: chest heaviness, sob History of Present Illness Maxine Villalba is a 54 year old female who has infiltrating ductal carcinoma with metastases to abdomen, she was seeing oncologist at [place] and recently decided to see Dr. Armenta because now she is very weak to travel to [place] came in with chief complaint of extreme lethargy generalized weakness and shortness of breath. Patient is stating that for last couple of weeks she has been very tired extremely lethargic needs assistance for her daily activities, has been feeling short of breath on mild exertion her complexion has been very pale. She gets 3-4 episodes of vomiting almost every day, she feels she is very dehydrated. She has not seen Dr. Armenta for now and is requesting an appointment with him during this visit. Her last chemotherapy session was 2 weeks ago, she is stating that after 2-3 episodes of chemotherapy she requires blood transfusion, no etiology has been found for her drop in hemoglobin. She is still on Eliquis for DVT and PE. She has not noticed any worsening of her chronic abdominal pain, she described abdominal pain as lower back pain which does not radiate towards her groin, she is denying dysuria. She is denying any blood in her stool, urine or hemoptysis. She endorses to feeling dehydrated because of vomiting, poor p.o. intake. Diagnostics in ER showed normal hemodynamics, hemoglobin of 6.2, thoracic CT showed degenerative changes of spine, CT abdomen showed mild perinephric stranding but patient does not have acute CVA tenderness, there is no fever or leukocytosis, She has received 1 unit of PRBC in the ER, she was feeling really weak to go [place] hence hospital service was requested to observe her overnight While I was in the room she said her vision is getting blurred, I put her in Trendelenburg position, blood pressure was 130/70, she was saturating 85% on room air, she was put on 3 to nasal cannula, her vision improved after oxygenation, blood sugar was greater than 400mg/dl Review of Systems Const: Reports: chills, body aches, change in appetite, fatigue and malaise; Denies: fever Eyes: Reports: change in vision and blurry vision ENMT: Denies: throat pain Card: Denies: chest pain, palpitations or irregular heart rhythm Resp: Reports: shortness of breath and non-productive cough; Denies: wheezing or change in phlegm color GI: Reports: abdominal pain, nausea, vomiting and heartburn/indigestion; Denies: constipation, bloating, change in bowel habits or blood in stool : Denies: flank pain, difficulty urinating, painful urination, urinary frequency, urinary urgency or nighttime urination Musc: Reports: back pain, joint pain and muscle weakness; Denies: neck pain Skin/Breast: Denies: rash Neuro: Denies: headache Psych: Reports: anxiety and depression Endo: Denies: excessive urination Bg/Lymph: Denies: easy bruising All/Imm: Denies: hives Medications/Allergies Home Medications Medication Instructions Recorded Confirmed Last Taken Type apixaban [Eliquis] 5 mg PO DAILY 07/05/19 07/05/19 Unknown History citalopram 20 mg PO DAILY 07/05/19 07/05/19 Unknown History gabapentin 100 mg PO BID 07/05/19 07/05/19 Unknown History glipizide 5 mg PO DAILY 07/05/19 07/05/19 Unknown History insulin aspart U-100 [Novolog See Rx Instructions .ROUTE .COMPLEX 07/05/19 07/05/19 Unknown History PenFill U-100 Insulin] lorazepam 0.5 mg PO Q4H PRN 07/05/19 07/05/19 Unknown History morphine 15 mg PO Q8H 07/05/19 07/05/19 07/04/19 History ondansetron HCl 4 mg PO TID 07/05/19 07/05/19 Unknown History pantoprazole [Protonix] 40 mg PO BID 07/05/19 07/05/19 Unknown History Allergies Allergy/AdvReac Type Severity Reaction Status Date / Time acetaminophen [From Percocet] Allergy Severe ALGY-Rash Verified 07/05/19 14:37 oxycodone [From Percocet] Allergy Severe ALGY-Rash Verified 07/05/19 14:37 PFSH Acute PFSH: Statuses (acute, chronic, etc) shown below reflect problem list status as previously entered and may not be historically accurate Medical History (Updated 07/05/19 @ 22:31 by Vipin Duarte MD, [facility] [place]) BRCA positive (Acute) Breast cancer metastasized to intra-abdominal lymph nodes (Acute) Breast cancer, right (Acute) Hypertension (Acute) Infiltrating ductal carcinoma (Acute) Left leg DVT (Acute) Peripheral neuropathy (Acute) Pulmonary embolism (Acute) Type 2 diabetes mellitus (Acute) Surgical History (Updated 07/05/19 @ 20:30 by Sara Simpson MD) H/O bilateral oophorectomy (Acute) H/O breast reconstruction (Acute) H/O left nephrectomy (Acute) H/O: hysterectomy (Acute) History of prophylactic mastectomy of left breast (Acute) History of right total mastectomy (Acute) Family History (Updated 07/05/19 @ 20:30 by Sara Simpson MD) Father CAD (coronary artery disease) Mother Diabetes Mother has type 2 diabetes, sister with breast cancer grandmother with breast cancer Social History (Updated 07/05/19 @ 20:30 by Sara Simpson MD) Smoking and tobacco status: former smoker Alcohol intake: never Substance/Drug Use: never Household members: significant other Vitals/I&O/Wt Last Vital Signs Temp 97.9 F 07/05/19 19:30 Pulse 82 07/05/19 19:30 Resp 18 07/05/19 19:30 BP 139/75 07/05/19 19:30 Pulse Ox 94 07/05/19 19:30 07/05/19 07/05/19 07/05/19 06:59 14:59 22:59 Intake Total 0 / 0 Balance 0 / 0 Weight last 48 hrs Weight 117.934 kg Physical Exam Narrative: EXAM NARRATIVE: Patient was put in Trendelenburg position when she complained of blurry vision which improved after oxygenation, currently she is on 3 L nasal cannula, blood pressure 133/70, heart rate 70 S1-S2 no active signs of heart failure murmur no JVD. Breath sounds bilateral diminished however no adventitious sounds Abdomen is soft, distended, with obesity positive, mild tenderness on deep palpation around abdominal flanks, no CVA tenderness elicited Dry cracked lips, seems dehydrated No lower extremity edema No active bruising purpura or petechia on skin Muscle mass loss, hair loss positive, fat redistribution positive EOMI, PERRLA Data : 07/05/19 13:30 07/05/19 13:30 A&P Assessment and plan (1) Anemia: Status: Acute Qualifiers: Other causes of anemia: chronic disease, neoplastic Code(s): D64.9 - Anemia, unspecified (2) Acute hyponatremia: Status: Acute Code(s): E87.1 - Hypo-osmolality and hyponatremia (3) Acute kidney injury: Status: Acute Code(s): N17.9 - Acute kidney failure, unspecified (4) Metastatic breast cancer: Status: Acute Code(s): C50.919 - Malignant neoplasm of unspecified site of unspecified female breast (5) History of pulmonary embolism: Status: Acute Code(s): Z86.711 - Personal history of pulmonary embolism Additional A&P Information Acute on chronic anemia Low normal MCV We will check iron studies Her white count platelet counts are normal Splenomegaly on CT abdomen evident Patient is on Eliquis for DVT and PE no active source of bleeding I believe this is secondary to splenomegaly with hypersplenism which gets worse after chemotherapy, risk factors and complications of anticoagulation should be readdressed in the morning 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 Armenta and is requesting an appointment during her visit Dehydration causing hyponatremia and SHERYL I will give her second unit of leuko-reduced PRBC Normal saline at 50 cc/h Recheck BMP in the morning I would hold her Eliquis for now, Please readdress DVT prophylaxis once her hemoglobin is better and she is hemodynamically stable I am reluctant to use SCDs because of previous history of left leg DVT Type 2 diabetes with poorly controlled blood sugar currently hyperglycemic Consistent carbohydrate diet Moderate dose sliding scale CT abdomen showing perinephric stranding but patient is afebrile, no leukocytosis, her abdomen pain is chronic which is non radiating Monitor her vitals and white count if she becomes symptomatic or becoming septic will use antibiotics otherwise I will hold off for now Full code Attestations Medical Necessity Statement*: Will admit outpatient as observation for now for blood transfusion Time Spent in Patient Care: 60 Coding Level of Care Code Acute Procurement Technician for g Fwd Diagnoses Anemia D64.9 Other causes of anemia: chronic disease, neoplastic Acute hyponatremia E87.1 Acute kidney injury N17.9 Metastatic breast cancer C50.919 History of pulmonary embolism Z86.711
[2019-07-05] MEDS: LORazepam 0.5 mg Tablet PO (21:54)
[2019-07-05 22:44] LABS: Glucose Point of Care 427 mg/dL (70-110)
[2019-07-05] MEDS: ondansetron 4 MG Tablet PO (22:48)
[2019-07-05] MEDS: morphine ER (12 HR) 15 mg Tablet PO (22:48)
[2019-07-05] MEDS: sennosides 8.6 mg Tablet 17.2 MG PO (22:48)
[2019-07-06] VITALS (17 sets, daily range): BP systolic 94–136; BP diastolic 62–77; PULSE 74–96; RESP 18–26; TEMP 36.8–37.3; O2SAT 93–96
[2019-07-06] MEDS: sodium chloride 0.9% 100 ML 150 ML (02:58)
[2019-07-06] MEDS: sodium chloride 0.9% 1,000 ML 30 ML IV (03:09)
[2019-07-06 05:26] LABS: Basophils # 0.1 10^3/uL (0.0-0.1); Basophils % 0.5 %; Eosinophils # 0.1 10^3/uL (0.0-0.8); Eosinophils % 1.3 %; Hematocrit 26.2 % (37.0-47.0); Hemoglobin 8.2 g/dL (11.5-15.3); Lymphocytes # 1.2 10^3/uL (0.8-4.8); Lymphocytes % 12.4 %; Mean Corpuscular HGB Conc 31.3 g/dL (30.0-36.0); Mean Corpuscular Hemoglobin 25.2 pg (28.0-34.0); Mean Corpuscular Volume 80.4 fL (81-99); Mean Platelet Volume 9.3 fL (7.4-10.4); Monocytes # 0.9 10^3/uL (0.2-0.9); Monocytes % 9.5 %; Neutrophils # 7.2 10^3/uL (1.8-7.7); Neutrophils % 75.7 %; Nucleated Red Blood Cells % 0 %; Platelet Count 160 10^3/cmm (130-400); Red Blood Count 3.26 10^6/uL (4.1-5.3); Red Cell Distribution Width 19.4 % (12.1-15.1); White Blood Count 9.6 10^3/uL (4.0-10.0)
[2019-07-06] MEDS: morphine ER (12 HR) 15 mg Tablet PO ×3 (06:15→20:40)
[2019-07-06 06:22] LABS: Anion Gap 16.1 (5-19); Blood Urea Nitrogen 22 mg/dL (6-20); Calcium 9.4 mg/dL (8.5-10.5); Carbon Dioxide 22 mmol/L (22-29); Chloride 98 mmol/L (98-107); Glomerular Filtration Rate 35.9 mL/min (90-130); Glucose 201 mg/dL (74-109); Osmolality Calculated 276 mOsm/kg (285-295); Potassium 4.1 mmol/L (3.5-5.1); Sodium 132 mmol/L (136-145)
[2019-07-06 06:40] LABS: Glucose Point of Care 202 mg/dL (70-110)
[2019-07-06] MEDS: pantoprazole DR 40 mg Tablet PO ×2 (08:33→18:10)
[2019-07-06] MEDS: gabapentin 100 mg Capsule PO ×2 (08:33→18:10)
[2019-07-06] MEDS: citalopram 20 mg Tablet PO (08:35)
[2019-07-06] MEDS: ondansetron 4 MG Tablet PO ×3 (08:35→22:43)
[2019-07-06] MEDS: HYDROmorphone 1 mg/mL INJ 1 mL IVP ×2 (10:03→18:09)
[2019-07-06 11:24] LABS: Glucose Point of Care 292 mg/dL (70-110)
--- NOTE | 2019-07-06 11:54 | PC.NURSE ---
DR SANTANA VISITED WITH PT ABOUT DIAGNOSIS OF BREAST CANCER ALONG WITH BIOPSY OF THE TUMOR IN HER ABDOMEN, PT STATED SHE HAD A BIOPSY HERE IN [place] AND AGAIN IN [place] WHERE SHE WAS RECEIVING CHEMO AND IMMUNO THERAPY. ASKED HER ABOUT TAKING ELIQUIS FOR HER BLOOD CLOT IN HER LEG AND PT STATED SHE HAS NOT BEEN ABLE TO AFFORD THE MEDICATION AND SO SHE HAS NOT TAKEN IT IN THE PAST [address] SANTANA IS WANTING TO DO AN ULTRASOUND OF THE LEGS TO SEE WHAT CHANGES HAVE OCCURRED WITH THE BLOOD CLOT, MENTION OF A POSSIBLE IVC FILTER WAS MENTIONED WELL. DR SANTANA ASKED PT ABOUT CODE STATUS AND IF SHE WANTED CHEST COMPRESSION OR TO BE INTUBATED INCASE HER HEART STOPS BEATING, SHE STATED SHE WANTED TO THINK ABOUT IT. PT CODE STATUS IS FULL AT THIS TIME.
--- NOTE | 2019-07-06 12:08 | P.PN_ITS ---
Subjective Subjective: Interval history: Patient reports mild nonspecific across left and right chest pain that she thinks started yesterday and is constant without any alleviating or aggravating factors. She reports minimal shortness of breath. She denies abdominal pain or problems with bowel movement. Reports that in the last 2 days she noticed some burning on urination. Reports upper extremity swelling and she is getting her IV fluids through right arm. No erythema noted. Denies cough. PTH and vitamin D is low. She denies taking large amount of vitamin A. She does take 1 multivitamin tablet daily. Reports that she wants to go home as soon as possible as she is missing her dogs. Vitals/I&O/Wt Last Vital Signs Temp 99.1 F 07/06/19 10:53 Pulse 94 07/06/19 10:53 Resp 18 07/06/19 10:53 BP 94/62 07/06/19 10:53 Pulse Ox 93 07/06/19 10:53 07/05/19 07/06/19 07/06/19 22:59 06:59 14:59 Intake Total 1050 / 1050 750 / 1800 240 / 240 Output Total 300 / 300 Balance 1050 / 1050 450 / 1500 240 / 240 Weight last 48 hrs Weight 117.934 kg Physical Exam Const: COMMON NORMALS: no apparent distress and oriented x3 Eye: CONJUNCTIVA: Yes conjunctiva abnormal OTHER: Both eyes are injected. Resp: COMMON NORMALS: normal respiratory effort and clear to auscultation bilaterally AUSCULTATION: clear to auscultation bilaterally Cardio: COMMON NORMALS: regular rate, regular rhythm and S2 normal heart sound RATE: regular rate RHYTHM: regular rhythm HEART SOUNDS: S2 normal GI: COMMON NORMALS: normal to inspection, nondistended, normoactive bowel sounds, soft to palpation and non-tender PALPATION: Yes soft Extremity: COMMON NORMALS: normal to inspection OTHER: No lower extremity edema bilaterally. Neuro: COMMON NORMALS: oriented x3 Data : 07/06/19 04:44 07/06/19 04:44 A&P Assessment and plan (1) Anemia: Status: Acute Qualifiers: Other causes of anemia: chronic disease, neoplastic Code(s): D64.9 - Anemia, unspecified (2) Acute hyponatremia: Status: Acute Code(s): E87.1 - Hypo-osmolality and hyponatremia (3) Acute kidney injury: Status: Acute Code(s): N17.9 - Acute kidney failure, unspecified (4) Metastatic breast cancer: Status: Acute Code(s): C50.919 - Malignant neoplasm of unspecified site of unspecified female breast (5) History of pulmonary embolism: Status: Acute Code(s): Z86.711 - Personal history of pulmonary embolism Additional A&P Information Acute on chronic anemia Low normal MCV We will check iron studies Her white count platelet counts are normal Splenomegaly on CT abdomen evident Patient is on Eliquis for DVT and PE no active source of bleeding I believe this is secondary to splenomegaly with hypersplenism which gets worse after chemotherapy, risk factors and complications of anticoagulation should be readdressed in the morning 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 Armenta and is requesting an appointment during her visit Dehydration causing hyponatremia and SHERYL I will give her second unit of leuko-reduced PRBC Normal saline at 50 cc/h Recheck BMP in the morning I would hold her Eliquis for now, Please readdress DVT prophylaxis once her hemoglobin is better and she is hemodynamically stable I am reluctant to use SCDs because of previous history of left leg DVT Type 2 diabetes with poorly controlled blood sugar currently hyperglycemic Consistent carbohydrate diet Moderate dose sliding scale CT abdomen showing perinephric stranding but patient is afebrile, no leukocytosis, her abdomen pain is chronic which is non radiating Monitor her vitals and white count if she becomes symptomatic or becoming septic will use antibiotics otherwise I will hold off for now Full code Coding Level of Care Code 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
[2019-07-06] MEDS: lanolin oint 7 gm 1 APPLIC TOPICAL (13:02)
--- NOTE | 2019-07-06 13:07 | P.PN_ITS ---
Subjective Subjective: Interval history: Patient reports being very weak but denies shortness of breath or chest pain. Denies abdominal pain. She was diagnosed with triple negative breast cancer approximately 16 years ago and underwent treatment in [facility] which included daina motherapy and bilateral mastectomy. In March last year she presented with left lower extremity DVT/PE and found to have pelvic mass which was biopsied showing undifferentiated carcinoma which was consistent with metastatic disease from breast primary. Lung, esophagus, endometrium, ovary, thyroid and salivary gland primary felt less likely. Patient reports that at [facility] she had also biopsy procedure performed and she was told that that was consistent with breast primary and she was started on chemotherapy and immunotherapy. Her last treatment was 2 weeks ago. Patient has been very weak since then. She reports that her masses are increasing in size and not responding to treatment. She reports that there was a genetic test performed and unfortunately no other imm unotherapy can match. Patient wants to continue with care here in [place] and requests to see Dr. Armenta. Discussed case with Dr. Armenta and he will see patient either later today or tomorrow. Patient reports that for the last 1 months she was not taking any anticoagulation as her Eliquis ran out and it was too expensive to buy. Vitals/I&O/Wt Last Vital Signs Temp 99.1 F 07/06/19 10:53 Pulse 94 07/06/19 10:53 Resp 18 07/06/19 10:53 BP 94/62 07/06/19 10:53 Pulse Ox 93 07/06/19 10:53 07/05/19 07/06/19 07/06/19 22:59 06:59 14:59 Intake Total 1050 / 1050 750 / 1800 240 / 240 Output Total 300 / 300 Balance 1050 / 1050 450 / 1500 240 / 240 Weight last 48 hrs Weight 117.934 kg Physical Exam Const: COMMON NORMALS: oriented x3 Resp: COMMON NORMALS: normal respiratory effort and clear to auscultation bilaterally AUSCULTATION: clear to auscultation bilaterally Cardio: COMMON NORMALS: regular rate, regular rhythm and S2 normal heart sound RATE: regular rate RHYTHM: regular rhythm HEART SOUNDS: S2 normal GI: COMMON NORMALS: normal to inspection, nondistended, normoactive bowel sounds, soft to palpation and non-tender PALPATION: Yes soft Neuro: COMMON NORMALS: oriented x3 and no focal motor deficits Data : 07/06/19 04:44 07/06/19 04:44 A&P Assessment and plan (1) Anemia: Status: Acute Qualifiers: Other causes of anemia: chronic disease, neoplastic Code(s): D64.9 - Anemia, unspecified (2) Acute hyponatremia: Status: Acute Code(s): E87.1 - Hypo-osmolality and hyponatremia (3) Acute kidney injury: Status: Acute Code(s): N17.9 - Acute kidney failure, unspecified (4) Metastatic breast cancer: Status: Acute Code(s): C50.919 - Malignant neoplasm of unspecified site of unspecified female breast (5) History of pulmonary embolism: Status: Acute Code(s): Z86.711 - Personal history of pulmonary embolism Additional A&P Information I had extensive discussion with patient regarding plans of treatment. It appears that the patient has overall poor prognosis. We will await for Dr. Armenta's evaluation. I will request bilateral lower extremity venous ultrasound and patient will consider IVC filter placement to avoid PEs. Continue with IV fluids and will give 1 more unit of blood to boost patient's energy Will request physical therapy. Attestations Medical Necessity Statement*: Patient with significant anemia and generalized weakness requires close inpatient monitoring, treatment and evaluation. Time Spent in Patient Care: Greater than 35 minutes (>than 50% of time spent in counselling and/or direct pt care on unit) . 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
--- NOTE | 2019-07-06 13:23 | USCV_ITS ---
Maxine Villalba Age: 54 Gender: F : 1965 Exam Date: 07/06/2019 15:12 Ordering Phys: Deshawn Gillespie MD Technologist: Ashley Eaton Exam Location: [facility] [place] Indication: DVT HISTORY: History of deep venous thrombosis. PROCEDURES: Venous duplex imaging was performed in bilateral lower extremities. The following venous structures were evaluated: common femoral vein, profunda vein, proximal portion of the greater saphenous vein, superficial femoral vein, and the popliteal vein. In addition, the posterior tibial and peroneal trunk were evaluated. Serial compression and spectral Doppler flow evaluation were performed. FINDINGS: RIGHT: Complete occlusion of the mid common femoral vein. Partial occlusion in the superior common femoral vein. Superficial thrombophlebitis noted in the entire greater saphenous vein. Question possible thrombosis in one of the mid peroneal veins. LEFT: Complete occlusion mid common femoral vein. Partion occlusion proximal common femoral vein. Partion occlusion femoral vein. Superficial thrombophlebitis of the entire greater saphenous vein. CONCLUSIONS RIGHT: Complete occlusion of the mid common femoral vein. Partial occlusion in the superior common femoral vein. Superficial thrombophlebitis greater saphenous vein. Suspected thrombus in one of the mid peroneal veins. LEFT: Complete occlusion mid common femoral vein. Subtotal occlusion proximal common femoral vein. Partial occlusion femoral vein. Superficial thrombophlebitis greater saphenous vein. Carlos Neal MD (Electronically Signed) Final Date: 06 July 2019 16:12 S
[2019-07-06 16:44] LABS: Glucose Point of Care 324 mg/dL (70-110)
[2019-07-06] MEDS: ondansetron 2 mg/ML SDV 2 mL 4 MG IVP (18:09)
[2019-07-06 21:48] LABS: Glucose Point of Care 224 mg/dL (70-110)
[2019-07-06] MEDS: sennosides 8.6 mg Tablet 17.2 MG PO (22:43)
[2019-07-07] VITALS (13 sets, daily range): BP systolic 98–148; BP diastolic 58–82; PULSE 85–100; RESP 12–20; TEMP 36.2–38.1; O2SAT 85–96
[2019-07-07] MEDS: HYDROmorphone 1 mg/mL INJ 1 mL IVP ×2 (02:49→08:43)
[2019-07-07] MEDS: morphine ER (12 HR) 15 mg Tablet PO ×3 (06:08→21:25)
[2019-07-07 06:57] LABS: Glucose Point of Care 198 mg/dL (70-110)
[2019-07-07] MEDS: ondansetron 4 MG Tablet PO ×3 (08:34→21:25)
[2019-07-07] MEDS: gabapentin 100 mg Capsule PO ×2 (08:34→17:22)
[2019-07-07] MEDS: citalopram 20 mg Tablet PO (08:34)
[2019-07-07] MEDS: pantoprazole DR 40 mg Tablet PO ×2 (08:34→17:22)
[2019-07-07] MEDS: sodium chloride 0.9% 1,000 ML 30 ML IV (08:36)
[2019-07-07] MEDS: ondansetron 2 mg/ML SDV 2 mL 4 MG IVP (08:42)
[2019-07-07] MEDS: acetaminophen 325 mg Tablet 650 MG PO (10:52)
[2019-07-07 10:59] LABS: Glucose Point of Care 288 mg/dL (70-110)
--- NOTE | 2019-07-07 14:47 | PM.PN ---
Subjective Subjective: Interval history: Patient reports being unchanged. She was nauseous earlier today and requires frequent Zofran administrations. She denies shortness of breath or chest pain. She denies abdominal pain unless she moves. Her abdominal pain mostly originates in the right lower quadrant and goes to her flank area slowly. She is pain-free at rest. She was seen by Dr. Jensen earlier today for IVC filter placement is scheduled for tomorrow. Myself and Dr. Armenta were discussing patient's risks and benefits for IVC filter placement and she agrees to proceed. Vitals/I&O/Wt Last Vital Signs Temp 99.2 F 07/07/19 11:39 Pulse 100 07/07/19 11:39 Resp 16 07/07/19 13:50 BP 110/66 07/07/19 11:39 Pulse Ox 92 07/07/19 11:39 07/06/19 07/07/19 07/07/19 22:59 06:59 14:59 Intake Total 400 / 740 500 / 1240 1603.5 / 1603.5 Output Total 150 / 150 350 / 350 Balance 400 / 740 350 / 1090 1253.5 / 1253.5 Physical Exam Const: COMMON NORMALS: oriented x3 Resp: COMMON NORMALS: normal respiratory effort and clear to auscultation bilaterally AUSCULTATION: clear to auscultation bilaterally Cardio: COMMON NORMALS: regular rate, regular rhythm and S2 normal heart sound RATE: regular rate RHYTHM: regular rhythm HEART SOUNDS: S2 normal GI: COMMON NORMALS: normal to inspection, nondistended, normoactive bowel sounds, soft to palpation and non-tender PALPATION: Yes soft Neuro: COMMON NORMALS: oriented x3 and no focal motor deficits Data : 07/06/19 04:44 07/06/19 04:44 Micro: Microbiology 07/05/19 19:00 Urine Culture - Final Urine,Clean Catch A&P Assessment and plan (1) Anemia: Status: Acute Qualifiers: Other causes of anemia: chronic disease, neoplastic Code(s): D64.9 - Anemia, unspecified (2) Acute hyponatremia: Status: Acute Code(s): E87.1 - Hypo-osmolality and hyponatremia (3) Acute kidney injury: Status: Acute Code(s): N17.9 - Acute kidney failure, unspecified (4) Metastatic breast cancer: Status: Acute Code(s): C50.919 - Malignant neoplasm of unspecified site of unspecified female breast (5) History of pulmonary embolism: Status: Acute Code(s): Z86.711 - Personal history of pulmonary embolism Additional A&P Information Dr. Armenta will discuss with oncology service and [place] to see if cancer sequencing can be done if not done yet otherwise we may need to do it here. Dr. Armenta recommends to give 2 more units of blood and this will be ordered. Once IVC filter placed we will go ahead and initiate Eliquis with monitoring of hemoglobin. Slow ongoing GI bleed cannot be ruled out at this point. Attestations Medical Necessity Statement*: Patient with severe anemia and DVT with suspected PE requires close inpatient monitoring, treatment and evaluation. 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
[2019-07-07 16:11] LABS: Glucose Point of Care 337 mg/dL (70-110)
[2019-07-07] MEDS: lactated ringers 1,000 ML 125 ML IV (17:23)
[2019-07-07] MEDS: sodium chloride 0.9% 100 ML 150 ML (17:24)
--- NOTE | 2019-07-07 17:56 | PM.CONSULT ---
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 In 2006 patient underwent bilateral oophorectomy and hysterectomy. In March 2019 patient was admitted to [facility], respirations with progressive shortness of breath and left lower extremity swelling she was diagnosed with DVT as well as pulmonary embolism and was started on Eliquis. Workup during hospital stay including CT scan of abdomen showed evidence of intra-abdominal lymphadenopathy and at that time she underwent CT-guided biopsy which showed poorly differentiated Carcinoma subsequently patient went to [facility] to her medical oncologist Dr. Alejo at [facility]. Her pathology was reviewed there again it was confirmed poorly differentiated carcinoma, Metastatic breast cancer was one of the possibility but no further test Including cancer type ID or Next generation sequencing was done. Patient was started on palliative chemotherapy Abraxane/ atezolizumab . As her tumor was PDL 1 positive expression at 100% .Patient tolerated treatment reasonably well but as per patient she did notice swelling in her left neck and follow-up CT PET scan was planned but due to problem with the machine In [facility] it was not done .Patient lives in [facility] and now decided to transfer her care to [facility].Her case was discussed with Dr. ruiz today, she said she has seen her for one day only and now suggesting biopsy of left supraclavicular mass To do cancer type ID and next generation sequencing. and also PET scan to assess disease status. Patient is complaining of generalized weakness and fatigue, earlier she was given 2 units of packed RBCs for hemoglobin in the range of 6 g. Now concern is chronic blood loss, patient is requiring multiple blood transfusions. PMD is considering inferior vena cava filter as if patient continue to drop her hemoglobin, anticoagulation may be discontinued. Patient denies any fever chills, denies any nausea or vomiting, denies any diarrhea or constipation, complaining of generalized weakness and fatigue, shortness of breath and exertion. But no melena or hematochezia, no hemoptysis or hematemesis, no dysuria or hematuria. Review of Systems Narrative: No fever or chills, no nausea or vomiting, no diarrhea constipation, no palpitation, no wheezing, no abdominal cramps, no hematuria or dysuria, no focal weakness. Alert and oriented ?3. Meds/Allergies Home Medications and Allergies Home Medications Medication Instructions Recorded Confirmed Type apixaban [Eliquis] 5 mg PO DAILY 07/05/19 07/05/19 History citalopram 20 mg PO DAILY 07/05/19 07/05/19 History gabapentin 100 mg PO BID 07/05/19 07/05/19 History glipizide 5 mg PO DAILY 07/05/19 07/05/19 History insulin aspart U-100 [Novolog See Rx Instructions .ROUTE .COMPLEX 07/05/19 07/05/19 History PenFill U-100 Insulin] lorazepam 0.5 mg PO Q4H PRN 07/05/19 07/05/19 History morphine 15 mg PO Q8H 07/05/19 07/05/19 History ondansetron HCl 4 mg PO TID 07/05/19 07/05/19 History pantoprazole [Protonix] 40 mg PO BID 07/05/19 07/05/19 History Allergies Allergy/AdvReac Type Severity Reaction Status Date / Time acetaminophen [From Percocet] Allergy Severe ALGY-Rash Verified 07/05/19 14:37 oxycodone [From Percocet] Allergy Severe ALGY-Rash Verified 07/05/19 14:37 Current Medications Current Medications Generic Name Dose Route Start Last Admin Trade Name Freq PRN Reason Stop Dose Admin Acetaminophen 650 mg 07/07/19 10:38 07/07/19 10:52 Tylenol PO 650 mg Q6H PRN Administration MILD PAIN Citalopram Hydrobromide 20 mg 07/06/19 09:00 07/07/19 08:34 Celexa PO 20 mg DAILY CHIKI Administration Gabapentin 100 mg 07/06/19 09:00 07/07/19 17:22 Neurontin PO 100 mg BID CHIKI Administration Hydromorphone HCl 1 mg 07/05/19 20:03 07/07/19 08:43 Dilaudid Inj IVP 1 mg 6XD PRN Administration PAIN Hydromorphone HCl 2 mg 07/05/19 21:33 07/07/19 13:50 Dilaudid Tab PO 2 mg Q6H PRN Administration SEVERE PAIN Sodium Chloride 1,000 mls @ 30 mls/hr 07/05/19 23:00 07/07/19 08:36 Sodium Chloride 0.9% IV 30 mls/hr .Q24H CHIKI Administration Lactated Ringer's 1,000 mls @ 125 mls/hr 07/07/19 16:30 07/07/19 17:23 Lactated Ringers IV 125 mls/hr .Q8H CHIKI Administration Insulin Aspart 0 unit 07/06/19 08:00 07/07/19 17:21 Novolog SUBCUT 14 unit WM&BEDTIME CHIKI Administration Protocol Lanolin 1 applic 07/06/19 12:53 07/06/19 13:02 Lanolin Oint TOPICAL 1 applic PRN PRN Administration DRYNESS Lorazepam 0.5 mg 07/05/19 21:33 07/05/19 21:54 Ativan PO 0.5 mg Q4H PRN Administration UNKNOWN Morphine Sulfate 15 mg 07/05/19 21:33 07/07/19 12:42 Ms Contin PO 15 mg Q8H CHIKI Administration Ondansetron HCl 4 mg 07/05/19 20:03 07/07/19 08:42 Zofran IVP 4 mg Q6H PRN Administration NAUSEA AND VOMITING Ondansetron HCl 4 mg 07/05/19 21:33 07/07/19 13:51 Zofran PO 4 mg TID CHIIK Administration Pantoprazole Sodium 40 mg 07/06/19 09:00 07/07/19 17:22 Protonix PO 40 mg BID CHIKI Administration Senna 17.2 mg 07/05/19 21:33 07/06/19 22:43 Senna Lax PO 17.2 mg BEDTIME CHIKI Administration PFSH Acute PFSH: Statuses (acute, chronic, etc) shown below reflect problem list status as previously entered and may not be historically accurate Medical History (Updated 07/06/19 @ 13:21 by Deshawn Gillespie MD) BRCA positive (Acute) Breast cancer metastasized to intra-abdominal lymph nodes (Acute) Breast cancer, right (Acute) Hypertension (Acute) Infiltrating ductal carcinoma (Acute) Left leg DVT (Acute) Peripheral neuropathy (Acute) Pulmonary embolism (Acute) Type 2 diabetes mellitus (Acute) Surgical History (Updated 07/05/19 @ 20:30 by Sara Simpson MD) H/O bilateral oophorectomy (Acute) H/O breast reconstruction (Acute) H/O left nephrectomy (Acute) H/O: hysterectomy (Acute) History of prophylactic mastectomy of left breast (Acute) History of right total mastectomy (Acute) Family History (Updated 07/05/19 @ 20:30 by Sara Simspon MD) Father CAD (coronary artery disease) Mother Diabetes Mother has type 2 diabetes, sister with breast cancer grandmother with breast cancer Social History (Updated 07/05/19 @ 20:30 by Sara Simpson MD) Smoking and tobacco status: former smoker Alcohol intake: never Substance/Drug Use: never Household members: significant other Vitals/I&O/Wt Last Vital Signs Temp 98.5 F 07/07/19 17:35 Pulse 87 07/07/19 17:35 Resp 16 07/07/19 17:35 BP 115/75 07/07/19 17:35 Pulse Ox 95 07/07/19 17:35 07/07/19 07/07/19 07/07/19 06:59 14:59 22:59 Intake Total 500 / 1240 1603.5 / 1603.5 0 / 1603.5 Output Total 150 / 150 350 / 350 Balance 350 / 1090 1253.5 / 1253.5 0 / 1253.5 Physical Exam Narrative: EXAM NARRATIVE: Alert and oriented ?3, head is atraumatic normocephalic No mouth sores, no thrush, no jaundice Left supraclavicular mass palpable, nontender, no skin changes. No other cervical lymphadenopathy. Lungs clear, poor air entry, Heart S1-S2 Abdomen soft bowel sounds present, nontender Lower extremity 2+ edema left more than right. Data Micro: Micro: Microbiology 07/05/19 19:00 Urine Culture - Fi nal Urine,Clean Catch A&P Additional A&P Information Discussed with patient regarding her disease status, patient has distant history of triple negative breast cancer now presented with intra-abdominal lymphadenopathy and gallbladder mass, CT-guided biopsy of lymph node confirmed poorly differentiated carcinoma, metastatic breast cancer was one of the possibility but not confirmed, tumor was PDL 1 positive she was treated with immunotherapy atezolizumab/Abraxane in [facility]. As per patient a her tumor was progressing as she noted left supraclavicular mass, Patient decided not to go back to [place] because of her physician was moving out and also due to transportation as she lives in [facility]. Her case was discussed with Dr. ruiz , who was taking care of her during her stay in [facility] and her planning was to repeat CT PET scan to assess the response to Abraxane/atezolizumab but due to technical problems PET scanmachine, It was not done in the meantime patient decided not to go back. Due to insufficient specimen, cancer type ID was not done on her last CT-guided intra-abdominal biopsy . At this point we will consider biopsy of left neck mass and do cancer type ID to identified the primary and also consider next generation sequencing to see if she is a candidate for target therapy. In the meantime continue supportive care and transfuse if hemoglobin less than 8 g and as patient has microscopic anemia, may benefit from iron supplements. Also consider CT PET scan to assess disease status, once we have left neck mass biopsy results available along with cancer type ID and next generation sequencing, will discuss with patient and family regarding further plan. 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
--- NOTE | 2019-07-07 19:25 | P.CONIM_ITS ---
Providers/Reason For Consult Consulting Physican/Specialty*: Interaction cardiology Reason for Consult*: Consideration for IVC filter Requesting Physcian: Dr. Gillespie Attending Physician: Deshawn Gillespie MD Primary Care Provider: MICHELLE Angel History of Present Illness History of Present Illness Maxine Villalba is a 54 year old female Past medical history significant for metastatic breast cancer bilateral Recurrent extensive deep venous thrombosis, anemia possible bleeding status post transfusion not on anticoagulation due to severe anemia and bleeding problem has been recommended for recurrent DVT/pulmonary embolism for IVC filter. I have detail discussion with the patient. Her long-term prognosis is guarded. Her initial preference was if she can take anticoagulation but after discussion with Dr. Moctezuma who has also discussed with Dr. Armenta as per Dr. Moctezuma are of the Opinion that patient may not be a suitable candidate for anticoagulation and she is high risk for bleeding Was admitted with IVC filter placement. Patient agreed to it. She understand all risks benefits and alternative for IVC filter placement. She would like to proceed with it. Review of Systems General: Reports: 10 or more systems reviewed and unremarkable except in HPI and below Narrative: No fever or chills, no nausea or vomiting, no diarrhea constipation, no palpitation, no wheezing, no abdominal cramps, no hematuria or dysuria, no focal weakness. Alert and oriented ?3. Const: Reports: chills, body aches, change in appetite, fatigue and malaise; Denies: fever Eyes: Reports: change in vision, blurry vision and blind spots ENMT: Denies: throat pain, enlarged tonsils, painful swallowing, hoarseness, mouth pain or swelling of lips/tongue Card: Denies: chest pain, palpitations or irregular heart rhythm Resp: Reports: shortness of breath and non-productive cough; Denies: productive cough, wheezing or change in phlegm color GI: Reports: abdominal pain, nausea, vomiting and heartburn/indigestion; Denies: constipation, bloating, change in bowel habits or blood in stool : Denies: flank pain, difficulty urinating, painful urination, urinary frequency, urinary urgency, urinary hesitancy or nighttime urination Musc: Reports: back pain, joint pain, limited range of motion and muscle weakness; Denies: neck pain or extremity swelling Skin/Breast: Denies: rash, itching or redness Neuro: Denies: headache or numbness in extremities Psych: Reports: anxiety and depression Endo: Denies: excessive urination, excessive thirst or tired all the time Bg/Lymph: Denies: easy bruising All/Imm: Denies: hives Meds/Allergies Home Medications and Allergies Home Medications Medication Instructions Recorded Confirmed Type apixaban [Eliquis] 5 mg PO DAILY 07/05/19 07/05/19 History citalopram 20 mg PO DAILY 07/05/19 07/05/19 History gabapentin 100 mg PO BID 07/05/19 07/05/19 History glipizide 5 mg PO DAILY 07/05/19 07/05/19 History insulin aspart U-100 [Novolog See Rx Instructions .ROUTE .COMPLEX 07/05/19 07/05/19 History PenFill U-100 Insulin] lorazepam 0.5 mg PO Q4H PRN 07/05/19 07/05/19 History morphine 15 mg PO Q8H 07/05/19 07/05/19 History ondansetron HCl 4 mg PO TID 07/05/19 07/05/19 History pantoprazole [Protonix] 40 mg PO BID 07/05/19 07/05/19 History Allergies Allergy/AdvReac Type Severity Reaction Status Date / Time acetaminophen [From Percocet] Allergy Severe ALGY-Rash Verified 07/05/19 14:37 oxycodone [From Percocet] Allergy Severe ALGY-Rash Verified 07/05/19 14:37 Current Medications Current Medications Generic Name Dose Route Start Last Admin Trade Name Freq PRN Reason Stop Dose Admin Acetaminophen 650 mg 07/07/19 10:38 07/07/19 10:52 Tylenol PO 650 mg Q6H PRN Administration MILD PAIN Citalopram Hydrobromide 20 mg 07/06/19 09:00 07/07/19 08:34 Celexa PO 20 mg DAILY CHIKI Administration Gabapentin 100 mg 07/06/19 09:00 07/07/19 17:22 Neurontin PO 100 mg BID CHIKI Administration Hydromorphone HCl 1 mg 07/05/19 20:03 07/07/19 08:43 Dilaudid Inj IVP 1 mg 6XD PRN Administration PAIN Hydromorphone HCl 2 mg 07/05/19 21:33 07/07/19 13:50 Dilaudid Tab PO 2 mg Q6H PRN Administration SEVERE PAIN Sodium Chloride 1,000 mls @ 30 mls/hr 07/05/19 23:00 07/07/19 08:36 Sodium Chloride 0.9% IV 30 mls/hr .Q24H CHIKI Administration Lactated Ringer's 1,000 mls @ 125 mls/hr 07/07/19 16:30 07/07/19 17:23 Lactated Ringers IV 125 mls/hr .Q8H CHIKI Administration Insulin Aspart 0 unit 07/06/19 08:00 07/07/19 17:21 Novolog SUBCUT 14 unit WM&BEDTIME CHIKI Administration Protocol Lanolin 1 applic 07/06/19 12:53 07/06/19 13:02 Lanolin Oint TOPICAL 1 applic PRN PRN Administration DRYNESS Lorazepam 0.5 mg 07/05/19 21:33 07/05/19 21:54 Ativan PO 0.5 mg Q4H PRN Administration UNKNOWN Morphine Sulfate 15 mg 07/05/19 21:33 07/07/19 12:42 Ms Contin PO 15 mg Q8H CHIKI Administration Ondansetron HCl 4 mg 07/05/19 20:03 07/07/19 08:42 Zofran IVP 4 mg Q6H PRN Administration NAUSEA AND VOMITING Ondansetron HCl 4 mg 07/05/19 21:33 07/07/19 13:51 Zofran PO 4 mg TID CHIKI Administration Pantoprazole Sodium 40 mg 07/06/19 09:00 07/07/19 17:22 Protonix PO 40 mg BID CHIKI Administration Senna 17.2 mg 07/05/19 21:33 07/06/19 22:43 Senna Lax PO 17.2 mg BEDTIME CHIKI Administration PFSH Acute PFSH: Statuses (acute, chronic, etc) shown below reflect problem list status as previously entered and may not be historically accurate Medical History BRCA positive (Acute) Breast cancer metastasized to intra-abdominal lymph nodes (Acute) Breast cancer, right (Acute) Hypertension (Acute) Infiltrating ductal carcinoma (Acute) Left leg DVT (Acute) Peripheral neuropathy (Acute) Pulmonary embolism (Acute) Type 2 diabetes mellitus (Acute) Surgical History H/O bilateral oophorectomy (Acute) H/O breast reconstruction (Acute) H/O left nephrectomy (Acute) H/O: hysterectomy (Acute) History of prophylactic mastectomy of left breast (Acute) History of right total mastectomy (Acute) Family History Father CAD (coronary artery disease) Mother Diabetes Mother has type 2 diabetes, sister with breast cancer grandmother with breast cancer Social History Smoking and tobacco status: former smoker Alcohol intake: never Substance/Drug Use: never Household members: significant other Vitals/I&O/Wt Last Vital Signs Temp 99.0 F 07/07/19 19:20 Pulse 85 07/07/19 19:20 Resp 18 07/07/19 19:20 BP 98/64 07/07/19 19:20 Pulse Ox 96 07/07/19 19:20 07/07/19 07/07/19 07/07/19 06:59 14:59 22:59 Intake Total 500 / 1240 1603.5 / 1603.5 240 / 1843.5 Output Total 150 / 150 350 / 350 Balance 350 / 1090 1253.5 / 1253.5 240 / 1493.5 Physical Exam Narrative: EXAM NARRATIVE: GENERAL: Patient is alert, awake and oriented x3. NECK: No jugular vein distension. HEENT: No cyanosis. No icterus. No pallor. HEART: Regular S1 and S2. No murmur, rub or gallop. LUNGS: Clear to auscultate bilaterally. ABDOMEN: Soft, nontender and nondistended. Positive bowel sounds. No guarding, rebound or tenderness. CENTRAL NERVOUS SYSTEM: Grossly nonfocal. EXTREMITIES: Lower extremities 1+ edema bilaterally. Data Micro: Micro: Microbiology 07/05/19 19:00 Urine Culture - Fi nal Urine,Clean Catch A&P Assessment and plan (1) Metastatic breast cancer: Status: Acute Code(s): C50.919 - Malignant neoplasm of unspecified site of unspecified female breast (2) History of pulmonary embolism: Patient has extensive recurrent bilateral DVT. She is not able to take anticoagulation due to severe anemia with possible bleed. She status post transfusion. She has a proximal DVT filling of both common femoral. She has history of pulmonary embolism. She has been recommended by her primary care and oncologist for IVC filter. We would therefore proceed with IVC filter placement. Patient has been explained all this benefited and alternative for the procedure. Patient has renal insufficiency. I may will try to use minimal contrast. She is aware of contrast induced nephropathy. She is aware of possibility of dialysis. Status: Acute Code(s): Z86.711 - Personal history of pulmonary embolism (3) Anemia: Status: Acute Qualifiers: Other causes of anemia: chronic disease, neoplastic Code(s): D64.9 - Anemia, unspecified Coding Level of Care Code New Pt Acute Automotive Technology Instructor for Chg Fwd Patient Type New History Problem Focused Exam Expanded Problem Focused Medical Decision Making Moderate Complexity Diagnoses Metastatic breast cancer C50.919 History of pulmonary embolism Z86.711 Anemia D64.9 Other causes of anemia: chronic disease, neoplastic
[2019-07-07] MEDS: diphenhydrAMINE 50 mg Capsule PO (19:59)
--- NOTE | 2019-07-07 20:41 | PC.NURSE ---
Patient refused CT with contrast because patient stated I cant have contrast because I only have one kidney and it's swollen. Notified nightshift Doc. (Dr. Jorgensen)
[2019-07-07] MEDS: sennosides 8.6 mg Tablet 17.2 MG PO (21:25)
[2019-07-07 21:44] LABS: Glucose Point of Care 268 mg/dL (70-110)
[2019-07-08] VITALS (9 sets, daily range): BP systolic 89–121; BP diastolic 57–83; PULSE 80–92; RESP 16–23; TEMP 36.7–37.7; O2SAT 88–94
[2019-07-08] MEDS: ondansetron 2 mg/ML SDV 2 mL 4 MG IVP (03:42)
[2019-07-08] MEDS: morphine ER (12 HR) 15 mg Tablet PO ×3 (05:38→19:23)
[2019-07-08 06:57] LABS: Glucose Point of Care 248 mg/dL (70-110)
[2019-07-08 07:12] LABS: Basophils % 0.3 %; Eosinophils # 0.1 10^3/uL (0.0-0.8); Eosinophils % 0.4 %; Hematocrit 28.8 % (37.0-47.0); Hemoglobin 8.9 g/dL (11.5-15.3); Lymphocytes # 0.9 10^3/uL (0.8-4.8); Lymphocytes % 7.6 %; Mean Corpuscular HGB Conc 30.9 g/dL (30.0-36.0); Mean Corpuscular Hemoglobin 25.9 pg (28.0-34.0); Mean Corpuscular Volume 83.7 fL (81-99); Mean Platelet Volume 9.3 fL (7.4-10.4); Monocytes % 8.2 %; Neutrophils % 82.9 %; Nucleated Red Blood Cells % 0 %; Platelet Count 133 10^3/cmm (130-400); Red Blood Count 3.44 10^6/uL (4.1-5.3); Red Cell Distribution Width 19.1 % (12.1-15.1); White Blood Count 12.1 10^3/uL (4.0-10.0)
--- NOTE | 2019-07-08 08:00 | CT_ITS ---
WS: [id number] CT CHEST, ABDOMEN AND PELVIS WITHOUT CONTRAST. HISTORY: Metastatic malignancy TECHNIQUE: Contiguous 5 mm axial imaging performed through the chest, abdomen and pelvis without IV c ontrast, oral contrast has not been provided. Coronal and sagittal reformats chest. Coronal and sagit david reformats through the abdomen and pelvis. All CT scans at [facility] use at least one of these dose optimization techniques: automated exposure control; mA and/or kV adjustment per patie nt size (includes targeted exams where dose is matched to clinical indication); or iterative reconstr uction. CONTRAST: None DLP: 2788.54 mGy.cm COMPARISON: 07/05/2019 Evaluation of the chest, abdomen and pelvis is limited without IV contrast. Chest CT: Dependent areas of atelectasis at the lung bases bilaterally and some very small RIGHT pleu ral effusion. There is a large soft tissue mass with variable density measuring 5.6 x 3.6 cm centered posterior to the LEFT clavicle. Additional smaller LEFT paratracheal lymph nodes. Cannot exclude hil ar lymph nodes without IV contrast. Heart size is normal. Very small amount of fluid adjacent to the LEFT cardiac apex. Patient has a Port-A-Cath present with tip in the distal SVC. Bilateral breast imp lants. No axillary lymph nodes. Abdomen CT: Patient has a known neoplastic process centered within the mesentery and retroperitoneum. There is also an abnormality in the gallbladder fossa which has been previously described. Gallbladd er is distended and contains a stone with variable density. Previously described mass was contiguous with the gallbladder is identified on 03/16/2019. This mass continues to increase in size extends to the midline and the anterior abdominal wall. Small amount of perihepatic fluid. There is extensive ed johan within soft tissues of the upper abdomen. Bulky lymphadenopathy centered in the kaleb hepatis and surrounding the mesenteric arteries extends into the retroperitoneum. Retrocrural lymphadenopathy. T here is encasement of the IVC and aorta. Extensive bulky lymphadenopathy has progressed since 019 but stable since 07/05/2019. Pancreatic head is being encased by the tumor. The adrenal glands are poorly visualized. No GI tract obstruction. Prior LEFT nephrectomy. Pelvic CT: Urinary bladder is minimally distended. No free fluid in the pelvis. No GI tract obstructi on. The adenopathy continues in the retroperitoneum along the iliac chains. No obturator lymph nodes. No inguinal lymph nodes. Thoracic and lumbar spondylitic changes. CT/CT chest abd pel wo con IMPRESSION: 1. Progression of metastatic disease within the chest, abdomen and pelvis as c ompared to 05/03/2019. Disease within the abdomen and pelvis similar to 07/05/2019 . 2. Bulky lymphadenopathy in the LEFT supraclavicular region and centered withi n the kaleb hepatis, mesentery, retrocrural and retroperitoneum. Study limited without IV contrast for subtle changes. 3. Abnormal gallbladder. Patient has a known neoplastic process invading the g allbladder. 4. Small LEFT pleural effusion. 5. Bibasilar atelectasis.
[2019-07-08] MEDS: ondansetron 4 MG Tablet PO ×3 (09:06→22:31)
[2019-07-08] MEDS: citalopram 20 mg Tablet PO (09:06)
[2019-07-08] MEDS: gabapentin 100 mg Capsule PO ×2 (09:06→17:14)
--- NOTE | 2019-07-08 11:31 | PC.NURSE ---
PT COMPLAINED OF ABDOMINAL PAIN AND STATED WHEN SHE THREW UP THIS MORNING SHE HAD BLOOD IN HER VOMIT, SHE HAD SAVED SOME OF WHAT SHE THREW UP IN A PAIN AND IT WAS A SMALL AMOUNT OF BRIGHT RED BLOOD, DR SANTANA INFORMED OF THIS. PT ALSO STATED SHE DID NOT WANT THE DILAUDID DUE TO IT MADE HER TOO DROWSY AND WOULD KNOCK ME OUT SO THIS NURSE ALSO INFORMED HIM SHE WOULD LIKE TO TRY SOMETHING ELSE IF POSSIBLE.
[2019-07-08 11:35] LABS: Glucose Point of Care 312 mg/dL (70-110)
[2019-07-08 12:34] LABS: Anion Gap 15.2 (5-19); Blood Urea Nitrogen 37 mg/dL (6-20); Calcium 9.7 mg/dL (8.5-10.5); Carbon Dioxide 20 mmol/L (22-29); Chloride 95 mmol/L (98-107); Glomerular Filtration Rate 24.4 mL/min (90-130); Glucose 314 mg/dL (65-115); Osmolality Calculated 269 mOsm/kg (285-295); Potassium 5.2 mmol/L (3.5-5.1); Sodium 125 mmol/L (136-145)
[2019-07-08] MEDS: sodium chloride 0.9% 1,000 ML 100 ML IV (14:45)
--- NOTE | 2019-07-08 15:22 | P.PN_ITS ---
Subjective Subjective: Interval history: Patient had episodes of nausea and vomiting with minimal hematemesis this morning. She denied shortness of breath or chest pain during my evaluation. She continues to have abdominal pain with minimal movement. IVC filter was not placed today because of rising creatinine. Patient was started on IV fluids and hopefully creatinine improves tomorrow and patient can undergo IVC filter placement. This was postponed because Dr. King will require small amount of contrast for procedure. Discussed with Dr. Rojas and plan is to perform neck mass biopsy tomorrow morning. Discussed with Dr. Hooper and patient will have EGD tomorrow for further evaluation of hematemesis. Metastatic etiology suspected. Vitals/I&O/Wt Last Vital Signs Temp 98.1 F 07/08/19 11:08 Pulse 85 07/08/19 11:08 Resp 20 H 07/08/19 11:08 BP 89/57 07/08/19 11:08 Pulse Ox 92 07/08/19 11:08 07/08/19 07/08/19 07/08/19 06:59 14:59 22:59 Intake Total 1208.5 / 3777.417 240 / 240 Balance 1208.5 / 3427.417 240 / 240 Weight last 48 hrs Weight 131.769 kg Physical Exam Const: COMMON NORMALS: no apparent distress and oriented x3 Resp: COMMON NORMALS: normal respiratory effort and clear to auscultation bilaterally AUSCULTATION: clear to auscultation bilaterally Cardio: COMMON NORMALS: regular rate, regular rhythm and S2 normal heart sound RATE: regular rate RHYTHM: regular rhythm HEART SOUNDS: S2 normal OTHER: No lower extremity edema GI: COMMON NORMALS: normal to inspection, nondistended, normoactive bowel sounds and soft to palpation; negative for non-tender PALPATION: Yes soft Neuro: COMMON NORMALS: oriented x3 and no focal motor deficits Data : 07/08/19 06:40 07/08/19 11:59 A&P Assessment and plan (1) Anemia: Status: Acute Qualifiers: Other causes of anemia: chronic disease, neoplastic Code(s): D64.9 - Anemia, unspecified (2) Acute hyponatremia: Status: Acute Code(s): E87.1 - Hypo-osmolality and hyponatremia (3) Acute kidney injury: Status: Acute Code(s): N17.9 - Acute kidney failure, unspecified (4) Metastatic breast cancer: Status: Acute Code(s): C50.919 - Malignant neoplasm of unspecified site of unspecified female breast (5) History of pulmonary embolism: Status: Acute Code(s): Z86.711 - Personal history of pulmonary embolism Additional A&P Information Continue current monitoring and treatment. Plan to proceed with above-mentioned procedures tomorrow. We will avoid anticoagulation for now. Attestations Medical Necessity Statement*: Patient with hematemesis, DVT and likely PE as well as metastatic malignancy requires close inpatient monitoring, treatment and evaluation. Time Spent in Patient Care: 16 - 35 minutes Coding Level of Care Code Acute Payroll Benefits Administrator for g Fwd Diagnoses Anemia D64.9 Other causes of anemia: chronic disease, neoplastic Acute hyponatremia E87.1 Acute kidney injury N17.9 Metastatic breast cancer C50.919 History of pulmonary embolism Z86.711
[2019-07-08 16:41] LABS: Glucose Point of Care 180 mg/dL (70-110)
--- NOTE | 2019-07-08 18:00 | P.PN_ITS ---
Subjective Subjective: Interval history: Patient creatinine is 2.1. Patient has been explained regarding contrast induced nephropathy she would like to be further hydrated and think about it Vitals/I&O/Wt Last Vital Signs Temp 98.0 F 07/08/19 15:40 Pulse 81 07/08/19 15:40 Resp 16 07/08/19 16:16 BP 118/71 07/08/19 15:40 Pulse Ox 94 07/08/19 16:16 07/08/19 07/08/19 07/08/19 06:59 14:59 22:59 Intake Total 1208.5 / 3777.417 240 / 240 240 / 480 Balance 1208.5 / 3427.417 240 / 240 240 / 480 Weight last 48 hrs Weight 290 lb 8 oz Physical Exam Narrative: EXAM NARRATIVE: GENERAL: Patient is alert, awake and oriented x3. NECK: No jugular vein distension. HEENT: No cyanosis. No icterus. No pallor. HEART: Regular S1 and S2. No murmur, rub or gallop. LUNGS: Clear to auscultate bilaterally. ABDOMEN: Soft, nontender and nondistended. Positive bowel sounds. No guarding, rebound or tenderness. CENTRAL NERVOUS SYSTEM: Grossly nonfocal. EXTREMITIES: Lower extremities 1+ edema bilaterally. Data : 07/08/19 06:40 07/08/19 11:59 A&P Assessment and plan (1) Metastatic breast cancer: Status: Acute Code(s): C50.919 - Malignant neoplasm of unspecified site of unspecified female breast (2) History of pulmonary embolism: Patient creatinine has worsened to 2.1. We will continue IV fluid. Patient would also like to hold for right now. She understand risk for pulmonary embolism and from it. She has been explained all risks benefits and alternative for the procedure. She understands the risk of contrast induced nephropathy. We will recheck Chem-7 in the morning. She will be given IV fluid. If creatinine Will improve we will proceed 8:30 AM tomorrow Status: Acute Code(s): Z86.711 - Personal history of pulmonary embolism (3) Anemia: Post transfusion hemoglobin is 8.9 Status: Acute Qualifiers: Other causes of anemia: chronic disease, neoplastic Code(s): D64.9 - Anemia, unspecified Attestations Medical Necessity Statement*: As per medicine Coding Level of Care Code Established Pt Acute Shredder Operator for Chg Fwd Patient Type Established History Problem Focused Exam Problem Focused Medical Decision Making Moderate Complexity Diagnoses Metastatic breast cancer C50.919 History of pulmonary embolism Z86.711 Anemia D64.9 Other causes of anemia: chronic disease, neoplastic
--- NOTE | 2019-07-08 19:25 | PC.NURSE ---
dr francis notified of port being infiltrated. port was de accessed. dr carl to re access port for patent line. table games shift manager nurse notified.
--- NOTE | 2019-07-08 20:14 | PC.NURSE ---
Patient's port to right chest accessed per doctors order. No blood return, but flushed well. Dressing applied 20 gauge IV started in left hand with blood return, flushed well, dressing applied.
[2019-07-08 20:44] LABS: Glucose Point of Care 224 mg/dL (70-110)
[2019-07-08] MEDS: piperacillin-tazobactam 3.375 GM in sodium chloride 0.9% (plus) 50 ML IV (22:30)
[2019-07-08] MEDS: sennosides 8.6 mg Tablet 17.2 MG PO (22:31)
[2019-07-08] MEDS: pantoprazole 40 mg SDV IVP (22:31)
[2019-07-09] VITALS (59 sets, daily range): BP systolic 86–105; BP diastolic 54–70; PULSE 75–90; RESP 16–22; TEMP -12.7–36.8; O2SAT 90–95
[2019-07-09] MEDS: morphine ER (12 HR) 15 mg Tablet PO ×3 (03:51→21:01)
[2019-07-09] MEDS: piperacillin-tazobactam 3.375 GM in sodium chloride 0.9% (plus) 50 ML IV ×3 (03:51→20:59)
[2019-07-09 05:33] LABS: Basophils % 0.2 %; Eosinophils # 0.1 10^3/uL (0.0-0.8); Eosinophils % 0.4 %; Hematocrit 29.8 % (37.0-47.0); Hemoglobin 9.1 g/dL (11.5-15.3); Lymphocytes % 7.9 %; Mean Corpuscular HGB Conc 30.5 g/dL (30.0-36.0); Mean Corpuscular Hemoglobin 25.6 pg (28.0-34.0); Mean Corpuscular Volume 83.9 fL (81-99); Mean Platelet Volume 9.6 fL (7.4-10.4); Monocytes # 0.9 10^3/uL (0.2-0.9); Monocytes % 7.2 %; Neutrophils # 10.6 10^3/uL (1.8-7.7); Neutrophils % 83.6 %; Nucleated Red Blood Cells % 0 %; Platelet Count 146 10^3/cmm (130-400); Red Blood Count 3.55 10^6/uL (4.1-5.3); Red Cell Distribution Width 19.3 % (12.1-15.1); White Blood Count 12.6 10^3/uL (4.0-10.0)
[2019-07-09 05:50] LABS: Anion Gap 18.1 (5-19); Blood Urea Nitrogen 38 mg/dL (6-20); Calcium 9.8 mg/dL (8.5-10.5); Carbon Dioxide 19 mmol/L (22-29); Chloride 94 mmol/L (98-107); Glomerular Filtration Rate 24.4 mL/min (90-130); Glucose 188 mg/dL (65-115); Osmolality Calculated 265 mOsm/kg (285-295); Potassium 5.1 mmol/L (3.5-5.1); Sodium 126 mmol/L (136-145)
[2019-07-09 06:09] LABS: Glucose Point of Care 188 mg/dL (70-110)
[2019-07-09] MEDS: sodium chloride 0.9% 1,000 ML 30 ML (07:19)
--- NOTE | 2019-07-09 07:34 | ANES.PREANE2 ---
Pre-Anesthetic Assessment Pre-Anesthetic Assessment: Height/Weight: Height 1.75 m Weight 128.956 kg Temp Pulse Resp BP Pulse Ox 9.2 F L 90 20 H 86/58 93 07/09/19 07:11 07/09/19 07:11 07/09/19 07:11 07/09/19 07:11 07/09/19 07:11 Preop Diagnosis: gi bleed Proposed Procedure: Operation Date: 07/09/19 07:30 Proposed Procedures p EGD(Not Applicable) - Lei Hooper MD Operation Date: 07/09/19 17:30 Proposed Procedures p IVC Filter Insertion(Not Applicable) - Sara King MD Was Beta Radha taken within 24 hours: N/A Last Intake: 23:00 Social: Social History: No alcohol and No tobacco Exam: Pre-Anes Outpt Exam: alert, oriented x 3, clear to auscultation bilaterally and regular rate & rhythm Airway: Submandibular: WNL Cervical ROM: WNL MP: 1 Pulmonary: Pulmonary: MOREJON and SOB CV/HEM: CV/HEM: Anemia, Angina (Stable), DVT ( L leg DVT) and HTN : : Chronic renal Insufficiency Comments: Nephrectomy 35 yrs ago Hepatic: Hepatic: None reported GI: GI: GERD Comments: Colon CA Metabolic: Metabolic: DM Comments: AVG 100-200 Musc/skel: Musc/skel: Lower Back Pain and OA/DJD Anesthetic Plan: ASA status: 3 Anesthesia: Anesthesia Evaluation and MAC Risk of > 500 ml blood loss (7ml/kg in children): No Meds/Allergies Current Medications: Current Medications Generic Name Dose Route Start Last Admin Trade Name Freq PRN Reason Stop Dose Admin Acetaminophen 650 mg 07/07/19 10:38 07/07/19 10:52 Tylenol PO 650 mg Q6H PRN Administration MILD PAIN Citalopram Hydrobr omide 20 mg 07/06/19 09:00 07/08/19 09:06 Celexa PO 20 mg DAILY CHIKI Administration Gabapentin 100 mg 07/06/19 09:00 07/08/19 17:14 Neurontin PO 100 mg BID CHIKI Administration Hydromorphone HCl 1 mg 07/05/19 20:03 07/07/19 08:43 Dilaudid Inj IVP 1 mg 6XD PRN Administration PAIN Hydromorphone HCl 2 mg 07/05/19 21:33 07/08/19 16:16 Dilaudid Tab PO 2 mg Q6H PRN Administration SEVERE PAIN Sodium Chloride 1,000 mls @ 30 ml s/hr 07/05/19 23:00 07/08/19 15:36 Sodium Chloride 0.9% IV Not Given .Q24H CHIKI Piperacillin Sod/T azobactam 50 mls @ 12.5 mls /hr 07/08/19 10:00 07/09/19 03:51 Sod 3.375 gm/ So dium Chloride IV 12.5 mls/hr Q8H CHIKI Administration Protocol Sodium Chloride 1,000 mls @ 100 m ls/hr 07/08/19 14:45 07/09/19 03:47 Sodium Chloride 0.9% IV Infused .Q10H CHIKI Infusion Insulin Aspart 0 unit 07/06/19 08:00 07/08/19 22:31 Novolog SUBCUT 8 unit WM&BEDTIME CHIKI Administration Protocol Lanolin 1 applic 07/06/19 12:53 07/06/19 13:02 Lanolin Oint TOPICAL 1 applic PRN PRN Administration DRYNESS Lorazepam 0.5 mg 07/05/19 21:33 07/05/19 21:54 Ativan PO 0.5 mg Q4H PRN Administration UNKNOWN Morphine Sulfate 15 mg 07/05/19 21:33 07/09/19 03:51 Ms Contin PO 15 mg Q8H CHIKI Administration Ondansetron HCl 4 mg 07/05/19 20:03 07/08/19 03:42 Zofran IVP 4 mg Q6H PRN Administration NAUSEA AND VOMITI NG Ondansetron HCl 4 mg 07/05/19 21:33 07/08/19 22:31 Zofran PO 4 mg TID CHIKI Administration Pantoprazole Sodiu m 40 mg 07/08/19 11:30 07/08/19 22:31 Protonix IVP 40 mg Q12H CHIKI Administration Senna 17.2 mg 07/05/19 21:33 07/08/19 22:31 Senna Lax PO 17.2 mg BEDTIME CHIKI Administration PFSH Anesthesia PFSH: Medical History BRCA positive (Acute) Breast cancer metastasized to intra-abdominal lymph nodes (Acute) Breast cancer, right (Acute) Hypertension (Acute) Infiltrating ductal carcinoma (Acute) Left leg DVT (Acute) Peripheral neuropathy (Acute) Pulmonary embolism (Acute) Type 2 diabetes mellitus (Acute) Surgical History H/O bilateral oophorectomy (Acute) H/O breast reconstruction (Acute) H/O left nephrectomy (Acute) H/O: hysterectomy (Acute) History of prophylactic mastectomy of left breast (Acute) History of right total mastectomy (Acute) Family History Father CAD (coronary artery disease) Mother Diabetes Mother has type 2 diabetes, sister with breast cancer grandmother with breast cancer Social History Smoking and tobacco status: former smoker Alcohol intake: never Substance/Drug Use: never Household members: significant other Data Anesthesia CBC & Chem 7: 07/09/19 05:23 07/09/19 05:23 Other Labs: Laboratory Results - last 48 hr 07/05/19 07/07/19 07/07/19 14:25 10:54 16:05 WBC RBC Hgb Hct MCV MCH MCHC RDW Plt Count MPV Neut % (Auto) Lymph % (Auto) [place] % (Auto) Eos % (Auto) Baso % (Auto) Neut # (Auto) Lymph # (Auto) [place] # (Auto) Eos # (Auto) Baso # (Auto) Nucleated RBC % (auto) Nucleated RBCs # Sodium Potassium Chloride Carbon Dioxide Anion Gap BUN Creatinine GFR Calculation Glucose POC Glucose 288 337 Calculated Osmolality Calcium Blood Type O Positive Antibody Screen Negative Crossmatch See Detail 07/07/19 07/08/19 07/08/19 21:37 06:40 06:41 WBC 12.1 H RBC 3.44 L Hgb 8.9 L Hct 28.8 L MCV 83.7 MCH 25.9 L MCHC 30.9 RDW 19.1 H Plt Count 133 MPV 9.3 Neut % (Auto) 82.9 Lymph % (Auto) 7.6 [place] % (Auto) 8.2 Eos % (Auto) 0.4 Baso % (Auto) 0.3 Neut # (Auto) 10.0 H Lymph # (Auto) 0.9 [place] # (Auto) 1.0 H Eos # (Auto) 0.1 Baso # (Auto) 0.0 Nucleated RBC % (auto) 0 Nucleated RBCs # 0.0 Sodium Potassium Chloride Carbon Dioxide Anion Gap BUN Creatinine GFR Calculation Glucose POC Glucose 268 248 Calculated Osmolality Calcium Blood Type Antibody Screen Crossmatch 07/08/19 07/08/19 07/08/19 11:13 11:59 16:18 WBC RBC Hgb Hct MCV MCH MCHC RDW Plt Count MPV Neut % (Auto) Lymph % (Auto) [place] % (Auto) Eos % (Auto) Baso % (Auto) Neut # (Auto) Lymph # (Auto) [place] # (Auto) Eos # (Auto) Baso # (Auto) Nucleated RBC % (auto) Nucleated RBCs # Sodium 125 L Potassium 5.2 H Chloride 95 L Carbon Dioxide 20 L Anion Gap 15.2 BUN 37 H Creatinine 2.1 H GFR Calculation 24.4 L Glucose 314 H POC Glucose 312 180 Calculated Osmolality 269 L Calcium 9.7 Blood Type Antibody Screen Crossmatch 07/08/19 07/09/19 07/09/19 20:33 05:23 05:23 WBC 12.6 H RBC 3.55 L Hgb 9.1 L Hct 29.8 L MCV 83.9 MCH 25.6 L MCHC 30.5 RDW 19.3 H Plt Count 146 MPV 9.6 Neut % (Auto) 83.6 Lymph % (Auto) 7.9 [place] % (Auto) 7.2 Eos % (Auto) 0.4 Baso % (Auto) 0.2 Neut # (Auto) 10.6 H Lymph # (Auto) 1.0 [place] # (Auto) 0.9 Eos # (Auto) 0.1 Baso # (Auto) 0.0 Nucleated RBC % (auto) 0 Nucleated RBCs # 0.0 Sodium 126 L Potassium 5.1 Chloride 94 L Carbon Dioxide 19 L Anion Gap 18.1 BUN 38 H Creatinine 2.1 H GFR Calculation 24.4 L Glucose 188 H POC Glucose 224 Calculated Osmolality 265 L Calcium 9.8 Blood Type Antibody Screen Crossmatch 07/09/19 06:06 WBC RBC Hgb Hct MCV MCH MCHC RDW Plt Count MPV Neut % (Auto) Lymph % (Auto) [place] % (Auto) Eos % (Auto) Baso % (Auto) Neut # (Auto) Lymph # (Auto) [place] # (Auto) Eos # (Auto) Baso # (Auto) Nucleated RBC % (auto) Nucleated RBCs # Sodium Potassium Chloride Carbon Dioxide Anion Gap BUN Creatinine GFR Calculation Glucose POC Glucose 188 Calculated Osmolality Calcium Blood Type Antibody Screen Crossmatch Cardiac Studies: No Data to Display
--- NOTE | 2019-07-09 07:38 | PM.CONSULT ---
Providers/Reason For Consult Consulting Physican/Specialty*: Hospitalist service Reason for Consult*: Hematemesis Attending Physician: Deshawn Gillespie MD Primary Care Provider: MICHELLE Angel History of Present Illness History of Present Illness Maxine Villalba is a 54 year old female who has been seeing an oncologist in [place] for metastatic infiltrating ductal carcinoma. Patient recently transferred her care to Dr. Armenta and her last chemotherapy was 2 weeks ago. Patient has been feeling weak and had couple of episodes of emesis every day. Yesterday she had bloody emesis which she states was the first time this is ever happened. She also has generalized abdominal pain but no hematochezia or melena. She thinks she might had an EGD in the past. Review of Systems General: Reports: 10 or more systems reviewed and unremarkable except in HPI and below Meds/Allergies Home Medications and Allergies Home Medications Medication Instructions Recorded Confirmed Type apixaban [Eliquis] 5 mg PO DAILY 07/05/19 07/05/19 History citalopram 20 mg PO DAILY 07/05/19 07/05/19 History gabapentin 100 mg PO BID 07/05/19 07/05/19 History glipizide 5 mg PO DAILY 07/05/19 07/05/19 History insulin aspart U-100 [Novolog See Rx Instructions .ROUTE .COMPLEX 07/05/19 07/05/19 History PenFill U-100 Insulin] lorazepam 0.5 mg PO Q4H PRN 07/05/19 07/05/19 History morphine 15 mg PO Q8H 07/05/19 07/05/19 History ondansetron HCl 4 mg PO TID 07/05/19 07/05/19 History pantoprazole [Protonix] 40 mg PO BID 07/05/19 07/05/19 History Allergies Allergy/AdvReac Type Severity Reaction Status Date / Time acetaminophen [From Percocet] Allergy Severe ALGY-Rash Verified 07/05/19 14:37 oxycodone [From Percocet] Allergy Severe ALGY-Rash Verified 07/05/19 14:37 Current Medications Current Medications Generic Name Dose Route Start Last Admin Trade Name Freq PRN Reason Stop Dose Admin Acetaminophen 650 mg 07/07/19 10:38 07/07/19 10:52 Tylenol PO 650 mg Q6H PRN Administration MILD PAIN Citalopram Hydrobromide 20 mg 07/06/19 09:00 07/08/19 09:06 Celexa PO 20 mg DAILY CHIKI Administration Gabapentin 100 mg 07/06/19 09:00 07/08/19 17:14 Neurontin PO 100 mg BID CHIKI Administration Hydromorphone HCl 1 mg 07/05/19 20:03 07/07/19 08:43 Dilaudid Inj IVP 1 mg 6XD PRN Administration PAIN Hydromorphone HCl 2 mg 07/05/19 21:33 07/08/19 16:16 Dilaudid Tab PO 2 mg Q6H PRN Administration SEVERE PAIN Sodium Chloride 1,000 mls @ 30 mls/hr 07/05/19 23:00 07/08/19 15:36 Sodium Chloride 0.9% IV Not Given .Q24H CHIKI Piperacillin Sod/Tazobactam 50 mls @ 12.5 mls/hr 07/08/19 10:00 07/09/19 03:51 Sod 3.375 gm/ Sodium Chloride IV 12.5 mls/hr Q8H CHIKI Administration Protocol Sodium Chloride 1,000 mls @ 100 mls/hr 07/08/19 14:45 07/09/19 03:47 Sodium Chloride 0.9% IV Infused .Q10H CHIKI Infusion Insulin Aspart 0 unit 07/06/19 08:00 07/08/19 22:31 Novolog SUBCUT 8 unit WM&BEDTIME CHIKI Administration Protocol Lanolin 1 applic 07/06/19 12:53 07/06/19 13:02 Lanolin Oint TOPICAL 1 applic PRN PRN Administration DRYNESS Lorazepam 0.5 mg 07/05/19 21:33 07/05/19 21:54 Ativan PO 0.5 mg Q4H PRN Administration UNKNOWN Morphine Sulfate 15 mg 07/05/19 21:33 07/09/19 03:51 Ms Contin PO 15 mg Q8H CHIKI Administration Ondansetron HCl 4 mg 07/05/19 20:03 07/08/19 03:42 Zofran IVP 4 mg Q6H PRN Administration NAUSEA AND VOMITING Ondansetron HCl 4 mg 07/05/19 21:33 07/08/19 22:31 Zofran PO 4 mg TID CHIKI Administration Pantoprazole Sodium 40 mg 07/08/19 11:30 07/08/19 22:31 Protonix IVP 40 mg Q12H CHIKI Administration Senna 17.2 mg 07/05/19 21:33 07/08/19 22:31 Senna Lax PO 17.2 mg BEDTIME CHIKI Administration PFSH Acute PFSH: Statuses (acute, chronic, etc) shown below reflect problem list status as previously entered and may not be historically accurate Medical History BRCA positive (Acute) Breast cancer metastasized to intra-abdominal lymph nodes (Acute) Breast cancer, right (Acute) Hypertension (Acute) Infiltrating ductal carcinoma (Acute) Left leg DVT (Acute) Peripheral neuropathy (Acute) Pulmonary embolism (Acute) Type 2 diabetes mellitus (Acute) Surgical History H/O bilateral oophorectomy (Acute) H/O breast reconstruction (Acute) H/O left nephrectomy (Acute) H/O: hysterectomy (Acute) History of prophylactic mastectomy of left breast (Acute) History of right total mastectomy (Acute) Family History Father CAD (coronary artery disease) Mother Diabetes Mother has type 2 diabetes, sister with breast cancer grandmother with breast cancer Social History Smoking and tobacco status: former smoker Alcohol intake: never Substance/Drug Use: never Household members: significant other Vitals/I&O/Wt Last Vital Signs Temp 9.2 F L 07/09/19 07:11 Pulse 90 07/09/19 07:11 Resp 20 H 07/09/19 07:11 BP 86/58 07/09/19 07:11 Pulse Ox 93 07/09/19 07:11 07/08/19 07/09/19 07/09/19 22:59 06:59 14:59 Intake Total 440 / 1730 1050 / 1730 Balance 440 / 1730 1050 / 1730 Weight last 48 hrs Weight 284 lb 4.8 oz Weight 290 lb 8 oz Physical Exam Narrative: EXAM NARRATIVE: HEENT: Normocephalic Eye: Sclera /conjunctiva normal Respiratory and chest: Bilateral clear breath sounds on auscultation Cardiovascular: Normal S1 and S2 heart sounds Abdomen: Soft to palpation Neurological: Oriented to place person and time Skin: Intact, no lesions appreciated on gross exam A&P Assessment and plan (1) Anemia: Anemia with an episode of hematemesis yesterday. Plan for EGD under MAC Procedure, risks, benefits and alternatives have been discussed with the patient who wishes to proceed with surgery. Status: Acute Qualifiers: Other causes of anemia: chronic disease, neoplastic Code(s): D64.9 - Anemia, unspecified Coding Level of Care Code Acute Outside Energy Sales Representatives for Chg Fwd Diagnoses Anemia D64.9 Other causes of anemia: chronic disease, neoplastic
--- NOTE | 2019-07-09 08:07 | ANE.PACU2 ---
 Inpatient post-anesthesia follow up: Airway intact: Yes Vital signs: Temperature 97.3 F Pulse Rate [Monito r] 101 Pulse Rate 80 Respiratory Rate 16 Blood Pressure [Le ft Arm] 140/85 Blood Pressure 94/61 Pulse Oximetry 93 Oxygen Delivery Me thod [ Nasal Cannula Current Rate & Del michael] Oxygen Delivery Me thod Nasal Cannula Oxygen Flow Rate [ Current Rate 2.0 & Delivery] Oxygen Flow Rate 3 Fraction of Inspir ed Oxygen Hydration adequate: Yes Nausea and vomiting: No Pain level: 1 Mental status: Baseline
--- NOTE | 2019-07-09 09:30 | US_ITS ---
WS: [id number] ULTRASOUND GUIDED BIOPSY LEFT SUPRACLAVICULAR LYMPH NODE. HISTORY: Neck mass Procedure, risks, and complications are explained to the patient. Consent was obtained. Skin is clean sed with ChloraPrep and anesthetized with 1% buffered lidocaine. Large conglomerate mass in the LEFT neck is localized with ultrasound. Increased vascularity. Biopsy is performed with 18 and 20-gauge core needles. Specimen is placed in formalin as directed. Multiple biopsies were performed without significant complications. The risks of bleeding at the site which st opped after pressure. Specimen will be transported to pathology. US/US biopsy lymph node [id number] IMPRESSION: 1. Uncomplicated core biopsy of the LEFT supraclavicular mass. 2. Specimen sent to pathology for evaluation.
[2019-07-09 11:29] LABS: Glucose Point of Care 247 mg/dL (70-110)
--- NOTE | 2019-07-09 12:14 | PC.CHAP ---
Pastoral Care Encounter/Spiritual Assessment Type of Contact [x] Declined coil tier visit [] Patient/Family/Request visit [] Outpatient visit [] Follow-up visit [] Physician referral [] Code/Alert [] Routine visit [] Staff referral [] Actively dying [] Patient sleeping [] Family support [] [] Out of room [] Palliative care [] [] Receiving care in room [] Pre-surgical visit [] Trauma [] Long length of stay [] ICU visit [] Other: Relational/Emotional Strength [] Patient feels connected with others/family/visitors/staff [] Distress [] Loneliness/isolation [] Abandonment Spirituality of Patient [] Person of Carol [] Attends Baptism of their Carol [] Believes in Prayer [] Reads Bible or Caodaism materials [] There are Spiritual issues to be addressed Victim Advocate Interventions [] Prayer [] Active listening [] Non-anxious presence [] Spiritual/emotional support [] Crisis/trauma care [] Spiritual counseling [] Bereavement support [] Provided bereavement packet [] Provided Bible/devotional materials [] Provided toy/stuffed animal, coloring book to patient or family member [] Provided Communion [] Anointing/[place] [] Salvation [] Completed spiritual assessment [] Other: Impact on Illness or Injury [] Angry [] Fearful [] Anxious [] Often cries [] Exhaustion [] Unable to work [] Unable to attend mormonism [] Unable to walk/stand [] Unable to read [] Unable to drive [] Unable to eat/drink [] Unable to sleep [] Unable to be with family [] Patient intubated [] Other: Summary Time spent with patient
[2019-07-09] MEDS: pantoprazole 40 mg SDV IVP (12:23)
[2019-07-09] MEDS: sodium chloride 0.9% 1,000 ML 100 ML IV ×2 (12:24→17:11)
[2019-07-09] MEDS: ondansetron 4 MG Tablet PO ×2 (14:21→20:59)
--- NOTE | 2019-07-09 14:37 | PM.PN ---
Subjective Subjective: Interval history: This morning patient seen post EGD. Patient is due for biopsy later in the day today. On examination patient denies of having any shortness of breath: Nausea, vomiting but complains of generalized abdominal pain. Patient denies of having any cough. Patient creatinine is stable at 2.1. Patient is due for IVC filter. Vitals/I&O/Wt Last Vital Signs Temp 98.2 F 07/09/19 11:05 Pulse 75 07/09/19 13:26 Resp 18 07/09/19 11:05 BP 105/70 07/09/19 11:05 Pulse Ox 95 07/09/19 13:26 07/08/19 07/09/19 07/09/19 22:59 06:59 14:59 Intake Total 440 / 680 1050 / 1730 50 / 50 Balance 440 / 680 1050 / 1730 50 / 50 Weight last 48 hrs Weight 128.956 kg Weight 131.769 kg Physical Exam Narrative: EXAM NARRATIVE: General: No acute distress, AO x3, sick looking, pallor no icterus. HEENT: PERRLA, pupils bilaterally equal and reactive Chest: Normal vesicular breath sounds, no added sounds, equal good air entry bilaterally CVS: S1-S2 regular, no murmurs, no tachycardia, no gallops, no rubs Abdomen: Soft, nontender, no organomegaly, bowel sounds present Neuro: No focal deficits, no facial deformity, AO x3, power 5/5 in all limbs Extremities: Bilateral edema present, 2+. Bilateral pulses equal and palpable. Data : 07/09/19 05:23 07/09/19 05:23 A&P Assessment and plan (1) Dvt femoral (deep venous thrombosis): Status: Acute Code(s): I82.419 - Acute embolism and thrombosis of unspecified femoral vein (2) History of pulmonary embolism: Status: Acute Code(s): Z86.711 - Personal history of pulmonary embolism (3) Anemia: Status: Acute Qualifiers: Other causes of anemia: chronic disease, neoplastic Code(s): D64.9 - Anemia, unspecified (4) Acute hyponatremia: Status: Acute Code(s): E87.1 - Hypo-osmolality and hyponatremia (5) Acute kidney injury: Status: Acute Code(s): N17.9 - Acute kidney failure, unspecified (6) Metastatic breast cancer: Status: Acute Code(s): C50.919 - Malignant neoplasm of unspecified site of unspecified female breast Additional A&P Information Acute DVT: Most likely due to compression of inferior vena cava. Case discussed with Dr. Armenta from oncology. Unfortunately even after IVC filter patient would be at high risk of forming further thrombosis due to the compression of IVC. Patient would most likely need radiation therapy for debulking of the mass. Discussed the same with the patient and family bedside. Will consult radiation therapy. As patient would not be needing the chemotherapy for breast cancer anymore until she has the results from biopsy in next 3 weeks so we will start patient back on Eliquis on discharge. We will discuss with Dr. King for IVC filter placement. Creatinine 2.1 today. Most likely will monitor with IV hydration and repeat BMP tomorrow morning. History of primary embolism: Patient is off Eliquis right now given the anemia. No shortness of breath at present. SHERYL: Creat at 2.1 today. We will continue IV hydration with normal saline at 125 cc/h. Medication reconciled for nephrotoxic drugs. We will continue checking BMP daily. Anemia: Most likely chronic disease. Ferritin elevated. Iron panel reviewed. EGD today suggestive of mild erosive gastritis without any active bleeding. We will start patient Protonix twice daily. H. pylori from May negative. Advance to GI soft right now and if tolerating well can advance to regular diet. Check hemoglobin daily. Hyponatremia: We will check urine studies. Check urine lites, urine osmolality, serum osmolality. Calculated serum osmolality today 265. Continue with IV hydration for now and will repeat sodium levels tomorrow morning. Type 2 diabetes mellitus: Most recent HbA1c more than 12. Continue with insulin sliding scale at moderate dose. Continue current monitoring and treatment. Full code We will avoid anticoagulation for now for possible IVC filter tomorrow morning. GI soft diet Attestations Medical Necessity Statement*: Needs controlled hospitalization for management of acute DVT, anemia, SHERYL. Time Spent in Patient Care: Greater than 35 minutes (>than 50% of time spent in counselling and/or direct pt care on unit). Coding Level of Care Code Acute Potato Peeling Machine Operator for Ji Fwd Diagnoses Dvt femoral (deep venous thrombosis) I82.419 History of pulmonary embolism Z86.711 Anemia D64.9 Other causes of anemia: chronic disease, neoplastic Acute hyponatremia E87.1 Acute kidney injury N17.9 Metastatic breast cancer C50.912
[2019-07-09 16:19] LABS: Glucose Point of Care 224 mg/dL (70-110)
[2019-07-09] MEDS: gabapentin 100 mg Capsule PO (17:10)
--- NOTE | 2019-07-09 19:03 | PM.PN ---
Subjective Subjective: Interval history: Patient declined for IV filter placement today she sees she is too tired and she would like to see her kidney and better. I have detail discussion with patient and her daughter by bedside she understand risk benefit and alternative of the procedure. She would like to get more IV hydration and then see how her kidney function is tomorrow to proceed with IVC filter. Medications: Reviewed: Yes Vitals/I&O/Wt Last Vital Signs Temp 97.4 F L 07/09/19 15:01 Pulse 77 07/09/19 15:01 Resp 18 07/09/19 15:01 BP 96/54 07/09/19 15:01 Pulse Ox 94 07/09/19 15:01 07/09/19 07/09/19 07/09/19 06:59 14:59 22:59 Intake Total 1050 / 1730 50 / 50 838.333 / 888.333 Balance 1050 / 1730 50 / 50 838.333 / 888.333 Weight last 48 hrs Weight 284 lb 4.8 oz Weight 290 lb 8 oz Physical Exam Narrative: EXAM NARRATIVE: GENERAL: Patient is alert, awake and oriented x3. NECK: No jugular vein distension. HEENT: No cyanosis. No icterus. No pallor. HEART: Regular S1 and S2. No murmur, rub or gallop. LUNGS: Clear to auscultate bilaterally. ABDOMEN: Soft, nontender and nondistended. Positive bowel sounds. No guarding, rebound or tenderness. CENTRAL NERVOUS SYSTEM: Grossly nonfocal. EXTREMITIES: Lower extremities 1+ edema bilaterally. Data : 07/09/19 05:23 07/09/19 05:23 A&P Assessment and plan (1) Metastatic breast cancer: Status: Acute Code(s): C50.919 - Malignant neoplasm of unspecified site of unspecified female breast (2) History of pulmonary embolism: Patient creatinine has worsened to 2.1. We will continue IV fluid. We will reschedule her for tomorrow. She understands the risk of pulmonary embolism, , arrhythmia. If not contraindicated she should be started on anticoagulation. Status: Acute Code(s): Z86.711 - Personal history of pulmonary embolism (3) Anemia: Post transfusion hemoglobin is 8.9 Status: Acute Qualifiers: Other causes of anemia: chronic disease, neoplastic Code(s): D64.9 - Anemia, unspecified Attestations Medical Necessity Statement*: Requires continuation of hospitalization Coding Level of Care Code Acute Etcher Photoengraving for Chg Fwd History Expanded Problem Focused Exam Expanded Problem Focused Medical Decision Making Moderate Complexity Diagnoses Metastatic breast cancer C50.919 History of pulmonary embolism Z86.711 Anemia D64.9 Other causes of anemia: chronic disease, neoplastic
[2019-07-09] MEDS: sennosides 8.6 mg Tablet 17.2 MG PO (20:59)
[2019-07-09 21:23] LABS: Glucose Point of Care 253 mg/dL (70-110)
[2019-07-10] VITALS (8 sets, daily range): BP systolic 85–126; BP diastolic 46–72; PULSE 72–81; RESP 15–27; TEMP 36.6–37; O2SAT 93–95
[2019-07-10 03:45] LABS: Basophils % 0.4 %; Eosinophils # 0.1 10^3/uL (0.0-0.8); Eosinophils % 0.7 %; Hematocrit 26.2 % (37.0-47.0); Hemoglobin 8.1 g/dL (11.5-15.3); Lymphocytes # 0.8 10^3/uL (0.8-4.8); Lymphocytes % 8.7 %; Mean Corpuscular HGB Conc 30.9 g/dL (30.0-36.0); Mean Corpuscular Hemoglobin 25.2 pg (28.0-34.0); Mean Corpuscular Volume 81.4 fL (81-99); Mean Platelet Volume 9.8 fL (7.4-10.4); Monocytes # 0.7 10^3/uL (0.2-0.9); Monocytes % 7.6 %; Neutrophils # 7.9 10^3/uL (1.8-7.7); Neutrophils % 82.1 %; Nucleated Red Blood Cells % 0 %; Platelet Count 139 10^3/cmm (130-400); Red Blood Count 3.22 10^6/uL (4.1-5.3); Red Cell Distribution Width 19.6 % (12.1-15.1); White Blood Count 9.6 10^3/uL (4.0-10.0)
[2019-07-10 04:00] LABS: Alanine Aminotransferase < 5 U/L (0-33); Albumin Level 2.1 g/dL (3.5-5.2); Alkaline Phosphatase 299 IU/L (35-105); Anion Gap 20.3 (5-19); Aspartate Amino Transferase 11 U/L (0-32); Blood Urea Nitrogen 50 mg/dL (6-20); Calcium 9.6 mg/dL (8.5-10.5); Carbon Dioxide 19 mmol/L (22-29); Chloride 95 mmol/L (98-107); Globulin 4.7 g/dL (1.3-4.6); Glomerular Filtration Rate 12.7 mL/min (90-130); Glucose 223 mg/dL (65-115); Potassium 5.3 mmol/L (3.5-5.1); Sodium 129 mmol/L (136-145); Total Bilirubin 0.6 mg/dL (0.15-1.2); Total Protein 6.8 g/dL (6.6-8.7)
[2019-07-10] MEDS: piperacillin-tazobactam 3.375 GM in sodium chloride 0.9% (plus) 50 ML IV ×3 (04:42→21:13)
[2019-07-10] MEDS: morphine ER (12 HR) 15 mg Tablet PO ×3 (04:43→21:13)
[2019-07-10] MEDS: sodium chloride 0.9% 1,000 ML 125 ML IV ×2 (04:44→14:56)
[2019-07-10 06:56] LABS: Glucose Point of Care 246 mg/dL (70-110)
[2019-07-10] MEDS: ondansetron 4 MG Tablet PO ×2 (09:17→21:13)
[2019-07-10] MEDS: gabapentin 100 mg Capsule PO (09:17)
[2019-07-10] MEDS: citalopram 20 mg Tablet PO (09:17)
--- NOTE | 2019-07-10 09:44 | USCV_ITS ---
Maxine Villalba Age: 54 Gender: F : 1965 Exam Date: 07/10/2019 12:37 Ordering Phys: Garcia Khalil MD Technologist: Roberto Laura Exam Location: [facility] [place] Indication: ? RENAL VEIN THROMBUS Aortic Velocity @ SMA (cm/s) RIGHT KIDNEY LEFT KIDNEY Velocity (cm/s) Velocity (cm/s) Sys/Grey Sys/Grey Resistive Index Resistive Index 122.8 / 18.4 0.85 Hilar / 51.9 / 14.0 0.73 Upper Pole / 40.4 / 9.0 0.78 Mid Pole / 46.1 / 7.6 0.84 Lower Pole / Accleration Index (cm/sec2) 1184.0 Hilar 0 609.00 Upper Pole 633.00 Mid Pole 602.00 Lower Pole 148.3 Kidney Length (mm) FINDINGS Technically difficult study. Renal arery is patent without stenosis. Very limited evaluation of renal vein. Quality of exam not sufficient to exclude vein thrombus. IVC thrombus is noted with complete occlusion. CONCLUSIONS Enlarged right kidney, can be seen with renal vein thrombosis. No right renal artery stenosis. IVC thrombus, may be bland or tumor thrombus . Dr. Svetlana Rojas DO (Electronically Signed) Final Date: 10 July 2019 14:36 S
--- NOTE | 2019-07-10 09:44 | US_ITS ---
WS: [id number] RENAL ULTRASOUND HISTORY: carley, r/o renal vein thrombosis COMPARISON: CT 07/08/2019. TECHNIQUE: 2-D and color Doppler imaging of the kidney submitted. Right kidney: 16.7 cm x 6.7 cm x 7.9 cm. Markedly enlarged RIGHT kidney. Kidney appears edematous with loss of the cortical medullary differen tiation. Known LEFT nephrectomy. Aorta: Aorta is not visualized. There is a large soft tissue mass in the retroperitoneum consistent w ith adenopathy which has been previously described. Urinary Bladder: Not visualized. US/US renal BI with bladder IMPRESSION: 1. Enlarged RIGHT kidney. May be due to acute glomerulonephritis or renal vein thrombosis. 2. No obstruction. 3. Prior LEFT nephrectomy.
[2019-07-10 11:02] LABS: Uric Acid 9.6 mg/dL (2.4-5.7)
[2019-07-10] MEDS: pantoprazole 40 mg SDV IVP ×2 (11:29→23:42)
[2019-07-10 11:41] LABS: Glucose Point of Care 191 mg/dL (70-110)
--- NOTE | 2019-07-10 14:18 | P.CONIM_ITS ---
Providers/Reason For Consult Consulting Physican/Specialty*: Nephrology Reason for Consult*: Acute kidney injury Attending Physician: Garcia Khalil MD Primary Care Provider: MICHELLE Angel History of Present Illness History of Present Illness Maxine Villalba is a 54 year old female Thank you for consultation. Today I reviewed this pleasant 54-year-old female in the presence of her sister in law, for evaluation of acute kidney injury. Essentially, she has had a diagnosis of breast cancer that she has been fighting now since 2002. She was believed to be in remission until 2019, when a CT scan demonstrated evidence of intra-abdominal lymphadenopathy. She underwent CT guided biopsy, which showed poor differentiated carcinoma. It is believed to be metastatic breast cancer. Patient was started on palliative chemotherapy Abraxane/ atezolizumab. She recently underwent biopsy of a left supraclavicular mass, and this pathology is now pending. She presented to our facility on 05 July, with weakness, lethargy, shortness of breath. She required two units of blood. CT scan following admission demonstrated interval progression of a large heterogenous mass involving the pancreatic head, kaleb hepatis and gallbladder. Admission Janet duplex demonstrated complete occlusion of the right and left common femoral vein. Since hospitalization for real function has been poor with a creatinine that has been progressively increasing. She previously been prescribed Eliquis, however the medication was too costly for her to take over the last one month. Renal ultrasound scan demonstrates an enlarged right kidney with the loss of the cortical medullary differentiation. Review of Systems Const: Reports: change in appetite and malaise Card: Denies: chest pain Resp: Reports: shortness of breath; Denies: productive cough or non-productive cough Skin/Breast: Denies: rash or itching Neuro: Reports: weakness in extremities; Denies: headache or numbness in extremities Meds/Allergies Home Medications and Allergies Home Medications Medication Instructions Recorded Confirmed Type apixaban [Eliquis] 5 mg PO DAILY 07/05/19 07/05/19 History citalopram 20 mg PO DAILY 07/05/19 07/05/19 History gabapentin 100 mg PO BID 07/05/19 07/05/19 History glipizide 5 mg PO DAILY 07/05/19 07/05/19 History insulin aspart U-100 [Novolog See Rx Instructions .ROUTE .COMPLEX 07/05/19 07/05/19 History PenFill U-100 Insulin] lorazepam 0.5 mg PO Q4H PRN 07/05/19 07/05/19 History morphine 15 mg PO Q8H 07/05/19 07/05/19 History ondansetron HCl 4 mg PO TID 07/05/19 07/05/19 History pantoprazole [Protonix] 40 mg PO BID 07/05/19 07/05/19 History Allergies Allergy/AdvReac Type Severity Reaction Status Date / Time acetaminophen [From Percocet] Allergy Severe ALGY-Rash Verified 07/05/19 14:37 oxycodone [From Percocet] Allergy Severe ALGY-Rash Verified 07/05/19 14:37 Current Medications Current Medications Generic Name Dose Route Start Last Admin Trade Name Freq PRN Reason Stop Dose Admin Acetaminophen 650 mg 07/07/19 10:38 07/07/19 10:52 Tylenol PO 650 mg Q6H PRN Administration MILD PAIN Citalopram Hydrobromide 20 mg 07/06/19 09:00 07/10/19 09:17 Celexa PO 20 mg DAILY CHIKI Administration Gabapentin 100 mg 07/06/19 09:00 07/10/19 09:17 Neurontin PO 100 mg BID CHIKI Administration Hydromorphone HCl 2 mg 07/05/19 21:33 07/10/19 12:49 Dilaudid Tab PO 2 mg Q6H PRN Administration SEVERE PAIN Sodium Chloride 1,000 mls @ 30 mls/hr 07/05/19 23:00 07/08/19 15:36 Sodium Chloride 0.9% IV Not Given .Q24H CHIKI Piperacillin Sod/Tazobactam 50 mls @ 12.5 mls/hr 07/08/19 10:00 07/10/19 04:42 Sod 3.375 gm/ Sodium Chloride IV 12.5 mls/hr Q8H CHIKI Administration Protocol Sodium Chloride 1,000 mls @ 125 mls/hr 07/08/19 14:45 07/10/19 04:44 Sodium Chloride 0.9% IV 125 mls/hr .Q8H CHIKI Administration Insulin Aspart 0 unit 07/06/19 08:00 07/10/19 11:29 Novolog SUBCUT 6 unit WM&BEDTIME CHIKI Administration Protocol Lanolin 1 applic 07/06/19 12:53 07/06/19 13:02 Lanolin Oint TOPICAL 1 applic PRN PRN Administration DRYNESS Lorazepam 0.5 mg 07/05/19 21:33 07/05/19 21:54 Ativan PO 0.5 mg Q4H PRN Administration UNKNOWN Morphine Sulfate 15 mg 07/05/19 21:33 07/10/19 04:43 Ms Contin PO 15 mg Q8H CHIKI Administration Ondansetron HCl 4 mg 07/05/19 20:03 07/08/19 03:42 Zofran IVP 4 mg Q6H PRN Administration NAUSEA AND VOMITING Ondansetron HCl 4 mg 07/05/19 21:33 07/10/19 09:17 Zofran PO 4 mg TID CHIKI Administration Pantoprazole Sodium 40 mg 07/08/19 11:30 07/10/19 11:29 Protonix IVP 40 mg Q12H CHIKI Administration Senna 17.2 mg 07/05/19 21:33 07/09/19 20:59 Senna Lax PO 17.2 mg BEDTIME CHIKI Administration PFSH Acute PFSH: Statuses (acute, chronic, etc) shown below reflect problem list status as previously entered and may not be historically accurate Medical History BRCA positive (Acute) Breast cancer metastasized to intra-abdominal lymph nodes (Acute) Breast cancer, right (Acute) Hypertension (Acute) Infiltrating ductal carcinoma (Acute) Left leg DVT (Acute) Peripheral neuropathy (Acute) Pulmonary embolism (Acute) Type 2 diabetes mellitus (Acute) Surgical History H/O bilateral oophorectomy (Acute) H/O breast reconstruction (Acute) H/O left nephrectomy (Acute) H/O: hysterectomy (Acute) History of prophylactic mastectomy of left breast (Acute) History of right total mastectomy (Acute) Family History Father CAD (coronary artery disease) Mother Diabetes Mother has type 2 diabetes, sister with breast cancer grandmother with breast cancer Social History Smoking and tobacco status: former smoker Alcohol intake: never Substance/Drug Use: never Household members: significant other Vitals/I&O/Wt Last Vital Signs Temp 98.5 F 07/10/19 07:23 Pulse 72 07/10/19 11:08 Resp 27 H 07/10/19 12:49 BP 110/56 07/10/19 11:08 Pulse Ox 94 07/10/19 12:49 07/09/19 07/10/19 07/10/19 22:59 06:59 14:59 Intake Total 1038.333 / 0511.870 6030 / 2258.333 Balance 1038.333 / 6440.257 1899 / 2258.333 Weight last 48 hrs Weight 130 kg Weight 128.956 kg Physical Exam Const: COMMON NORMALS: no apparent distress, average body habitus and oriented x3 Eye: COMMON NORMALS: PERRL PUPIL: Yes PERRL Neck/C-Spine: COMMON NORMALS: no JVD Chest: COMMONS NORMALS: inspection of chest normal and palpation of chest normal Cardio: COMMON NORMALS: no JVD and regular rate RATE: regular rate : BLADDER/KIDNEY EXAM: No CVA tenderness Back/Pelvis: GENERAL BACK: No CVA tenderness and No mass Neuro: COMMON NORMALS: oriented x3 and CN's II-XII intact bilaterally A&P Additional A&P Information 1. Acute kidney injury The picture is most consistent with renal vein thrombosis. An acute glomerulonephritis would be highly circumstantial in this clinical setting and hence highly unlikely. I will complete the evaluation with your bustillo levels, CPK, TSH. Urinalysis demonstrates evidence of proteinuria which would be consistent with a diagnosis of renal vein thrombosis. A heparin infusion is really the only reasonable option at this time. If this fails the only other remaining option would be mechanical thrombectomy by interventional radiology. If the kidney function does not improve expeditiously then hemodialysis will be required. I had a [id number] a discussion with her sister in law at bedside. She was never keen to undergo intensive life supportive therapy including hemodialysis. With this in mind we are now leaning towards palliative care. A heparin infusion is a reasonable step, however, I've advised not to go beyond this. Avoid the usual nephrotoxins. Decrease IV fluid to 75 mL now. Strict ins and outs. 2. Extensive DVTs. Would defer IVC filter placement pending the results of the Infusion. 3. Anemia we are of course concerned that she may have some chronic blood loss, this may be made worse by happen infusion. Will continue to follow hemoglobin levels very closely. Thanks for this consultation consultation was performed with telemedicine Juan Manuel Berrios MD [facility] renal care services [phone] Consult Attestations Medical Necessity Statement: eval for renal failure Coding Level of Care Code Acute Medical Social Consultant for Ji Dockery
--- NOTE | 2019-07-10 14:50 | PM.PN ---
Subjective Subjective: Interval history: This morning on examination patient lying comfortably in bed. States she does not have any shortness of breath, nausea, vomiting, headache, palpitations but does complain of abdominal distention. Labs reviewed. Renal function is worsening today. Medications: Reviewed: Yes Vitals/I&O/Wt Last Vital Signs Temp 98.5 F 07/10/19 07:23 Pulse 72 07/10/19 11:08 Resp 27 H 07/10/19 12:49 BP 110/56 07/10/19 11:08 Pulse Ox 94 07/10/19 12:49 07/09/19 07/10/19 07/10/19 22:59 06:59 14:59 Intake Total 1038.333 / 1196.449 9099 / 2258.333 Balance 1038.333 / 3151.483 9022 / 2258.333 Weight last 48 hrs Weight 130 kg Weight 128.956 kg Physical Exam Narrative: EXAM NARRATIVE: General: No acute distress, AO x3, sick looking, pallor no icterus. HEENT: PERRLA, pupils bilaterally equal and reactive Chest: Normal vesicular breath sounds, no added sounds, equal good air entry bilaterally CVS: S1-S2 regular, no murmurs, no tachycardia, no gallops, no rubs Abdomen: Soft, nontender, no organomegaly, bowel sounds present Neuro: No focal deficits, no facial deformity, AO x3, power 5/5 in all limbs Extremities: Bilateral edema present, 2+. Bilateral pulses equal and palpable. Data : 07/10/19 02:58 07/10/19 02:58 A&P Assessment and plan (1) Dvt femoral (deep venous thrombosis): Status: Acute Code(s): I82.419 - Acute embolism and thrombosis of unspecified femoral vein (2) History of pulmonary embolism: Status: Acute Code(s): Z86.711 - Personal history of pulmonary embolism (3) Anemia: Status: Acute Qualifiers: Other causes of anemia: chronic disease, neoplastic Code(s): D64.9 - Anemia, unspecified (4) Acute kidney injury: Status: Acute Code(s): N17.9 - Acute kidney failure, unspecified (5) Acute hyponatremia: Status: Acute Code(s): E87.1 - Hypo-osmolality and hyponatremia (6) Renal vein thrombosis: Status: Acute Code(s): I82.3 - Embolism and thrombosis of renal vein (7) Single kidney: Status: Acute Code(s): Z90.5 - Acquired absence of kidney (8) Metastatic breast cancer: Status: Acute Code(s): C50.919 - Malignant neoplasm of unspecified site of unspecified female breast Additional A&P Information Acute DVT: Most likely due to compression of inferior vena cava. Case discussed with Dr. Armenta from oncology. Unfortunately even after IVC filter patient would be at high risk of forming further thrombosis due to the compression of IVC. Patient would most likely need radiation therapy for debulking of the mass. Discussed the same with the patient and family bedside. Will consult radiation therapy. Case discussed with Dr. King regarding IVC filter. Because of DVT in our patient is because of compression of IVC. IVC filter can possible worsen the DVT in her case. Given worsening renal functions we will hold off on any IVC filter placement. Dr. King and Dr. Armenta agree with the treatment plan. Family is agreeable to same given the possible contrast load for IVC filter placement. On discharge can plan to start on anticoagulation. Will discuss with Dr. Armenta regarding what type of anticoagulation would be beneficial for patient. As per the studies Lovenox will be a better anticoagulation due to underlying cancer. History of primary embolism: Patient is off Eliquis right now given the anemia. No shortness of breath at present. SHERYL/ Renal vein thrombosis: Worsening renal functions today. Creatinine 3.7 today. Baseline creatinine around 0.8. Concerned regarding renal vein thrombosis given the extensive DVT due to compression of IVC. Patient also has a single kidney. Renal vein Doppler was ordered which is concerning for renal vein thrombosis. Nephrology has been consulted. Treatment for renal vein thrombosis would be anticoagulation versus thrombectomy. Patient is not a good candidate for thrombectomy given underlying extensive DVT and cancer. Discussed with patient and family at bedside regarding potential harmful effects of being on heparin drip with worsening anemia and bleeding. Patient states and verbalizes that she agrees with the potential harmful effects but would want to give it a try with heparin drip for now. We will start patient on heparin drip without bolus. We will check hematocrit and hemoglobin every 8 hours. Hyponatremia: We will continue IV hydration right now in view of extensive thrombosis. We will continue normal saline at 75 cc/h. For hyponatremia we will start patient on salt tablets 1 g every 8 hours with meals. We will check BMP daily. Hyperkalemia: Most likely due to worsening renal functions. Will give D50 and 10 units insulin. Medication reconciled for nephrotoxic drugs. We will continue checking BMP daily. Anemia: Most likely chronic disease. Ferritin elevated. Iron panel reviewed. EGD today suggestive of mild erosive gastritis without any active bleeding. We will start patient Protonix twice daily. H. pylori from May negative. Advance to GI soft right now and if tolerating well can advance to regular diet. Check hemoglobin Q8h while on heparin drip. Type 2 diabetes mellitus: Most recent HbA1c more than 12. Continue with insulin sliding scale at moderate dose. Continue current monitoring and treatment. CODE STATUS: Discussed with patient and family at bedside regarding their wishes for CODE STATUS. Patient states given the severe morbidity and advanced cancer at present she would want to be DNR/DNI. CODE STATUS change in the system. We will avoid anticoagulation for now for possible IVC filter tomorrow morning. GI soft diet Attestations Medical Necessity Statement*: Needs continued hospitalisation for acute dvt and SHERYL Time Spent in Patient Care: Greater than 35 minutes (>than 50% of time spent in counselling and/or direct pt care on unit). Coding Level of Care Code Acute Marine Engineering Professor for Chg Fwd Diagnoses Dvt femoral (deep venous thrombosis) I82.419 History of pulmonary embolism Z86.711 Anemia D64.9 Other causes of anemia: chronic disease, neoplastic Acute kidney injury N17.9 Acute hyponatremia E87.1 Renal vein thrombosis I82.3 Single kidney Z90.5 Metastatic breast cancer C50.919
--- NOTE | 2019-07-10 15:44 | PC.PT ---
PT evaluation orders received prior to the venous doppler, However, we have been waiting for the IVC filter placement, was just started on heparin so 24hr until safe to mobilize. Just discovered she is going home on Hospice, discussed home situation with family, no PT needs at this time. Thank You.
[2019-07-10 17:00] LABS: Glucose Point of Care 169 mg/dL (70-110)
--- NOTE | 2019-07-10 17:01 | P.PN_ITS ---
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 Medications: Reviewed: Yes Vitals/I&O/Wt Last Vital Signs Temp 98.5 F 07/10/19 07:23 Pulse 80 07/10/19 15:21 Resp 15 07/10/19 15:21 BP 105/57 07/10/19 15:21 Pulse Ox 93 07/10/19 15:21 07/10/19 07/10/19 07/10/19 06:59 14:59 22:59 Intake Total 1170 / 2258.333 1050 / 1050 Balance 1170 / 2258.333 1050 / 1050 Weight last 48 hrs Weight 286 lb 9.6 oz Weight 284 lb 4.8 oz Physical Exam Narrative: EXAM NARRATIVE: GENERAL: Patient is alert, awake and oriented x3. NECK: No jugular vein distension. HEENT: No cyanosis. No icterus. No pallor. HEART: Regular S1 and S2. No murmur, rub or gallop. LUNGS: Clear to auscultate bilaterally. CENTRAL NERVOUS SYSTEM: Grossly nonfocal. Data : 07/10/19 02:58 07/10/19 02:58 A&P Assessment and plan (1) Metastatic breast cancer: As per oncology and medicine Status: Acute Code(s): C50.919 - Malignant neoplasm of unspecified site of unspecified female breast (2) History of pulmonary embolism: I have discussed the case with Dr. Godoy who has also discussed in de tail with Dr. Armenta. I have further discussed the case with family of the patient they are thinking hospice we will continue to treated with anticoagulation advised Lovenox once a day or anticoagulation as per hematology. At this point due to suspicion of vena cava obstruction she may not be benef ited with IVC filter. We will sign off for now. If indicated please feel free to contact us Status: Acute Code(s): Z86.711 - Personal history of pulmonary embolism (3) Anemia: Post transfusion hemoglobin is 8.9 Status: Acute Qualifiers: Other causes of anemia: chronic disease, neoplastic Code(s): D64.9 - Anemia, unspecified Attestations Medical Necessity Statement*: As per medicine Coding Level of Care Code Acute Equal Employment Opportunity Officer for Chg Fwd History Problem Focused Exam Problem Focused Medical Decision Making Low Complexity Diagnoses Metastatic breast cancer C50.919 History of pulmonary embolism Z86.711 Anemia D64.9 Other causes of anemia: chronic disease, neoplastic
[2019-07-10 21:07] LABS: Glucose Point of Care 156 mg/dL (70-110)
[2019-07-10] MEDS: sennosides 8.6 mg Tablet 17.2 MG PO (21:13)
--- NOTE | 2019-07-10 21:59 | P.EN_ITS ---
Event Note Event Note: Have had discussion with family and patient earlier in the day regarding findings of renal vein thrombosis and options of treatment and risk factors and benefit with each type of treatment modalities. At first family had wanted to do heparin drip for atleast 2 days. While heparin drip was set up p atient and family wanted to talk to this physician. Spoke to patient and family on phone and the state they have considered all the risk factors and possible benefits and given the multiple morbidities have decided to not go through with heparin drip but rather go Hospice. Plan Discussed with Care coordination and hospice will be set up by tomorrow. CBC, CMP in AM. No heparin drip for renal vein thrombosis Event Notes Attestations Time Spent in Patient Care: Greater than 35 minutes
[2019-07-11] VITALS: BP 97/53; PULSE 74; RESP 13; TEMP 36.6; O2SAT 93
[2019-07-11 04:00] VITALS: BP 98/61; PULSE 77; RESP 17; TEMP 36.7; O2SAT 90
[2019-07-11 05:20] LABS: Basophils % 0.3 %; Eosinophils # 0.1 10^3/uL (0.0-0.8); Eosinophils % 1.6 %; Hematocrit 27.7 % (37.0-47.0); Hemoglobin 8.3 g/dL (11.5-15.3); Lymphocytes # 0.8 10^3/uL (0.8-4.8); Lymphocytes % 10.9 %; Mean Corpuscular Hemoglobin 25.7 pg (28.0-34.0); Mean Corpuscular Volume 85.8 fL (81-99); Mean Platelet Volume 9.4 fL (7.4-10.4); Monocytes # 0.7 10^3/uL (0.2-0.9); Monocytes % 8.4 %; Neutrophils # 6.1 10^3/uL (1.8-7.7); Neutrophils % 78.2 %; Nucleated Red Blood Cells % 0 %; Platelet Count 155 10^3/cmm (130-400); Red Blood Count 3.23 10^6/uL (4.1-5.3); White Blood Count 7.7 10^3/uL (4.0-10.0)
[2019-07-11] MEDS: morphine ER (12 HR) 15 mg Tablet PO (05:34)
[2019-07-11] MEDS: sodium chloride 0.9% 1,000 ML 125 ML IV (05:36)
[2019-07-11 05:37] LABS: Alanine Aminotransferase < 5 U/L (0-33); Albumin Level 2.3 g/dL (3.5-5.2); Alkaline Phosphatase 453 IU/L (35-105); Anion Gap 21.6 (5-19); Aspartate Amino Transferase 13 U/L (0-32); Blood Urea Nitrogen 62 mg/dL (6-20); Carbon Dioxide 17 mmol/L (22-29); Chloride 99 mmol/L (98-107); Globulin 5.2 g/dL (1.3-4.6); Glomerular Filtration Rate 7.9 mL/min (90-130); Glucose 135 mg/dL (65-115); Potassium 5.6 mmol/L (3.5-5.1); Sodium 132 mmol/L (136-145); Total Bilirubin 0.6 mg/dL (0.15-1.2); Total Protein 7.5 g/dL (6.6-8.7)
[2019-07-11] MEDS: piperacillin-tazobactam 3.375 GM in sodium chloride 0.9% (plus) 50 ML IV (05:38)
[2019-07-11 06:00] VITALS: BMI 43.0
[2019-07-11 07:13] LABS: Glucose Point of Care 138 mg/dL (70-110)
[2019-07-11 07:19] VITALS: BP 119/60; PULSE 76; RESP 21; TEMP 36.6; O2SAT 91
[2019-07-11] MEDS: gabapentin 100 mg Capsule PO (08:29)
[2019-07-11] MEDS: citalopram 20 mg Tablet PO (08:29)
[2019-07-11] MEDS: ondansetron 4 MG Tablet PO (08:29)
--- NOTE | 2019-07-11 08:32 | PC.NURSE ---
PATIENT IS UNABLE TO ANSWER NURSE'S QUESTIONS. SHE IS UNABLE TO TELL NURSE NAME AND DATE OF . SHE IS STILL ABLE TO TAKE MEDICATIONS AND FOLLOW SIMPLE COMMANDS. WILL CONTINUE TO MONITOR.
--- NOTE | 2019-07-11 09:31 | P.DS_ITS ---
Discharge Providers Date of Admission: 07/06/19 13:27 Date of Discharge: Date of Discharge: July 11, 2019 Attending Provider at Admission: Sara Simpson MD Attending Provider at Discharge: Garcia Khalil MD Consults: Oncology: Dr. Armenta Surgery: Dr. Hooper Cardiology: Dr. King Nephrology: Locum Provider Primary Care Provider: MICHELLE Angel Diagnoses at Discharge Discharge Diagnosis (1) Metastatic breast cancer: Status: Acute (2) History of pulmonary embolism: Status: Acute Problem details: Patient also had DVT of left lower extremity (3) Anemia: Status: Acute Problem details: Patient reports that multiple endoscopies were performed previously with no identifiable cause of bleeding. Qualifiers: Other causes of anemia: chronic disease, neoplastic Reason for Visit Reason for Visit: Reason For Visit: chest heaviness, sob Hospital Course Discharge Summary: Maxine Villalba, 54-year-old female with past medical history of recently diagnosed DVT as well as pulmonary embolism for which he is on Eliquis in March 2019, triple negative breast cancer diagnosed in 2002 treated with bilateral mastectomy with reconstruction followed by chemoradiation therapy at [facility]. During her last hospitalization she was found to have intra-abdominal lymphadenopathy for which she underwent CT-guided biopsy which showed poorly differentiated carcinoma for which she subsequently went to [facility] again for treatment. She was thought to have breast cancer re cently and came and was started on chemotherapy for same with last chemotherapy 2 weeks prior to her admission. Patient was admitted to the hospital July 05, 2019 with complaint of feeling tired, lethargic frequent episodes of nausea and vomiting. On blood work at admission patient was found to be anemic with hemoglobin down to 6.2 and her lower limb Doppler showed bilateral extensive DVTs. Patient was transferred to unit of [facility] for anemia for which her hemoglobin responded well and improved low 8s. Surgery was consulted for EGD given reccurent anemia and EGD was done which revelaed gastritis without any active bleeding. Her lower limb DVTs were thought most likely due to mass-effect of the tumor in her abdomen compressing on the IVC leading to thrombosis. Patient wanted oncology treatment to be transferred to [place] near her home so she was supposed to be seen by Dr. Armenta who was consulted and patient. CT abdomen was done which showed progression of metastatic disease within the chest, abdomen pelvis along with bulky lymphadenopathy in the left supraclavicular region abutting the abnormal gallbladder. Patient underwent supraclavicular lymph node biopsy for further classification of the primary tumor. For her extensive DVTs because her hemoglobin was found at 6.2 cardiology was consulted for possible IVC filter placement. On further interviewing with the patient it was brought to the attention that her hemoglobin look for low every chemotherapy cycle without any episodes. As patient was planned for no further chemotherapy for now while deferred biopsy results were awaited it was deemed IVC filter would not be worthwhile given the hypertension risk of further thrombosis around the IVC filter because of prothrombotic state and malignancy along with sheer mass- effect on IVC leading to extensive DVT thrombosis. Her hospitalization was complicated further by worsening renal functions. 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 Further treatment plans of heparin drip to resolve vein thrombosis versus thrombectomy were discussed with patient's family and patient herself while discussing be potential benefits and risk factors of both treatment. Severity of disease and further goals of care were discussed with the patient. Given the severe morbidity along with advanced malignancy and grave prognosis of either treatment patient stated she would want to go hospice and would not want any further treatment. Given the patient's wishes hospice was arranged and patient was discharged with home hospice in comfortable in hemodynamically stable condition today. Physical Exam Narrative: EXAM NARRATIVE: General: No acute distress, AO x3, sick looking, pallor no icterus. HEENT: PERRLA, pupils bilaterally equal and reactive Chest: Normal vesicular breath sounds, no added sounds, equal good air entry bilaterally CVS: S1-S2 regular, no murmurs, no tachycardia, no gallops, no rubs Abdomen: Soft, nontender, no organomegaly, bowel sounds present Neuro: No focal deficits, no facial deformity, AO x3, power 5/5 in all limbs Extremities: Bilateral edema present, 2+. Bilateral pulses equal and palpable. Discharge Data Data Completed and Pending: Completed Studies During Hospitalization Category Date Time Status CT abdomen pelvis wo con [id number] Urge nt Cat Scan 07/05/19 17:[address] chest abd pel wo con Routine Cat Scan 07/08/19 08:[address] lumbar spine w o con* [id number] Urgen t Cat Scan 07/05/19 15:[address] thoracic spin wo con* [id number] Urge nt Cat Scan 07/05/19 15:18 Completed XR chest 1V kaleb ble [id number] Stat Exams 07/05/19 12:46 Completed NM pul vent and p erfus* [id number] Stat Nuc Med 07/05/19 14:39 Completed Pathology: Surgic al [PTH] Routine Pth 07/09/19 10:00 Completed CV renal doppler [id number] Routine Ultrasound 07/10/19 09:44 [place] [id number] Routin e Ultrasound 07/06/19 13:23 Com[place] ode [id number] Routine Ultrasound 07/09/19 09:30 Completed US renal BI with bladder Routine Ultrasound 07/10/19 09:44 Completed Pending at discharge Category Date Time Status 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 SPECIALIST request for service Routin e Exams 07/10/19 08:00 Ordered Osmolality Urine Routine Lab 07/09/19 16:47 Uncollected Platelet Count Q2 D Lab 07/12/19 04:00 Ordered Platelet Count Q2 D Lab 07/14/19 04:00 Ordered Urine Creatinine Routine Lab 07/09/19 16:47 Uncollected Urine Creatinine Routine Lab 07/10/19 09:44 Uncollected Urine Eosinophils Routine Lab 07/10/19 09:44 Uncollected Urine Random Lyte s Routine Lab 07/09/19 16:47 Uncollected Urine Random Lyte s Routine Lab 07/10/19 09:44 Uncollected Labs from last 24 hours 07/11/19 07/11/19 07/11/19 06:57 04:20 04:20 WBC 7.7 RBC 3.23 L Hgb 8.3 L Hct 27.7 L MCV 85.8 MCH 25.7 L MCHC 30.0 RDW 20.0 H Plt Count 155 MPV 9.4 Neut % (Auto) 78.2 Lymph % (Auto) 10.9 [place] % (Auto) 8.4 Eos % (Auto) 1.6 Baso % (Auto) 0.3 Neut # (Auto) 6.1 Lymph # (Auto) 0.8 [place] # (Auto) 0.7 Eos # (Auto) 0.1 Baso # (Auto) 0.0 Nucleated RBC % (a uto) 0 Nucleated RBCs # 0.0 Sodium 132 L Potassium 5.6 H Chloride 99 Carbon Dioxide 17 L Anion Gap 21.6 H BUN 62 H Creatinine 5.6 H* GFR Calculation 7.9 L Glucose 135 H POC Glucose 138 Uric Acid Calcium 10.0 Total Bilirubin 0.6 AST 13 ALT < 5 Alkaline Phosphata se 453 H Total Protein 7.5 Albumin 2.3 L Globulin 5.2 H 07/10/19 07/10/19 07/10/19 20:41 16:11 11:07 WBC RBC Hgb Hct MCV MCH MCHC RDW Plt Count MPV Neut % (Auto) Lymph % (Auto) [place] % (Auto) Eos % (Auto) Baso % (Auto) Neut # (Auto) Lymph # (Auto) [place] # (Auto) Eos # (Auto) Baso # (Auto) Nucleated RBC % (a uto) Nucleated RBCs # Sodium Potassium Chloride Carbon Dioxide Anion Gap BUN Creatinine GFR Calculation Glucose POC Glucose 156 169 191 Uric Acid Calcium Total Bilirubin AST ALT Alkaline Phosphata se Total Protein Albumin Globulin 07/10/19 02:58 WBC RBC Hgb Hct MCV MCH MCHC RDW Plt Count MPV Neut % (Auto) Lymph % (Auto) [place] % (Auto) Eos % (Auto) Baso % (Auto) Neut # (Auto) Lymph # (Auto) [place] # (Auto) Eos # (Auto) Baso # (Auto) Nucleated RBC % (a uto) Nucleated RBCs # Sodium Potassium Chloride Carbon Dioxide Anion Gap BUN Creatinine GFR Calculation Glucose POC Glucose Uric Acid 9.6 H Calcium Total Bilirubin AST ALT Alkaline Phosphata se Total Protein Albumin Globulin Vitals: Last Vital Signs Temp 97.8 F 07/11/19 07:19 Pulse 76 07/11/19 07:19 Resp 21 H 07/11/19 07:19 BP 119/60 07/11/19 07:19 Pulse Ox 91 07/11/19 07:19 Discharge Plan Discharge Patient Disposition: Hospice - Home Condition: Stable Prescriptions: Continued ondansetron HCl 4 mg tablet 4 mg PO TID RF: 0 citalopram 20 mg tablet 20 mg PO DAILY RF: 0 lorazepam 0.5 mg tablet 0.5 mg PO Q4H PRN (Reason: UNKNOWN) RF: 0 morphine 15 mg tablet extended release 15 mg PO Q8H RF: 0 gabapentin 100 mg capsule 100 mg PO BID RF: 0 Protonix 40 mg Tablet,Delayed Release (Dr/Ec) 40 mg PO BID RF: 0 Novolog PenFill U-100 Insulin 100 unit/mL Cartridge See Rx Instructions .ROUTE .COMPLEX RF: 0 Changed Eliquis 5 mg tablet 2.5 mg PO BIDWM Qty: 0 RF: 0 Discontinued glipizide 5 mg Tablet Extended Release 24hr 5 mg PO DAILY RF: 0 Discharge Orders: Discharge Order (Routine); Ordered 07/11/19 Ordered By: Garcia Khalil Referrals: Sofy Cruz FNP-C [Primary Care Provider] - 2 weeks ([facility] will be calling to schedule a hospital followup with MICHELLE Torres to be seen in 2 weeks. If you don't hear from them within a reasonable amount of time, please call them at [phone] ) Discharge Diet: Regular Discharge Activity: Increase activity as tolerated Patient Instructions: GI Discharge Instructions Discharge Date/Time: 07/11/19 12:37 Discharge Attestations Time Spent in Discharge Care*: greater than 30 min Specific Discharge Activities: Specific discharge activities: educating patient, educating and/or supporting family/caregiver and discussing with case management manager/social workers/dc planners Status at Discharge: Cognitive status at discharge: cognitively intact , Behavioral status at discharge: cooperative , Functional status at discharge: other assisted ambulation Overall status at discharge: patient has a new baseline Quality Metrics Clinical Quality Measures During this hospital stay, did patient experience: VTE Contraindication to Overlap Therapy: Other (home hospice) VTE Discharge Education: Other (home hospice) Coding Level of Care Code Acute 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
[2019-07-11 09:56] VITALS: BP 119/60; PULSE 76; RESP 21; TEMP 36.6; O2SAT 91
[2019-07-11 10:22] VITALS: RESP 16
[2019-07-11 11:13] VITALS: BP 109/64; PULSE 75; RESP 17; TEMP 36.6; O2SAT 95
[2019-07-11 11:34] LABS: Glucose Point of Care 171 mg/dL (70-110)
== END 2019-07-11 12:37 | disposition hospice, home (50) | DRG 264 ==
LOC: ER 13:08 → MEDSURG 20:19 → CSU 07-08 10:17
PROVIDERS: Emergency Medicine; Internal Medicine; Internal Medicine Cardiovascular Disease; Surgery; Admitting Provider Internal Medicine; Emergency Provider Family Medicine; Family Provider Nurse Practitioner; PCP Nurse Practitioner; Visit Provider Student in an Organized Health Care Education/Training Program
PROC: 0DJ08ZZ Inspection of Upper Intestinal Tract, Via Natural or Artificial Opening Endoscopic (ICD-10-PCS; CPT 43235; principal; 2019-07-09 07:30)
DX: I82.413 Acute embolism and thrombosis of femoral vein, bilateral (principal); C77.8 Secondary and unspecified malignant neoplasm of lymph nodes of multiple regions; E87.1 Hypo-osmolality and hyponatremia; N17.9 Acute kidney failure, unspecified; K92.0 Hematemesis; C50.919 Malignant neoplasm of unspecified site of unspecified female breast; Z79.899 Other long term (current) drug therapy; Z79.01 Long term (current) use of anticoagulants; Z86.711 Personal history of pulmonary embolism; I10 Essential (primary) hypertension; E11.42 Type 2 diabetes mellitus with diabetic polyneuropathy; Z90.13 Acquired absence of bilateral breasts and nipples; Z87.891 Personal history of nicotine dependence; D64.9 Anemia, unspecified; D63.0 Anemia in neoplastic disease; Z17.1 Estrogen receptor negative status [ER-]; T45.516A Underdosing of anticoagulants, initial encounter; Z91.120 Patient's intentional underdosing of medication regimen due to financial hardship; Z66 Do not resuscitate; K29.70 Gastritis, unspecified, without bleeding; Z79.4 Long term (current) use of insulin; Z79.891 Long term (current) use of opiate analgesic; Z90.5 Acquired absence of kidney; N28.81 Hypertrophy of kidney; I82.3 Embolism and thrombosis of renal vein
CPT/HCPCS: 12345; 36415; 36416; 36430; 36591; 36592; 38505; 43235; 51798; 71045; 71250; 72128; 72131; 74176; 76770; 76857; 76942; 78014; 80048; 80053; 81001; 82962; 83880; 84484; 84550; 85025; 85378; 86850; 86900; 87086; 88305; 93005; 93970; 93975; 96372; 96374; 96375; 96376; 99283; 99285; A9540; A9567; C9113; G0378; J1170; J1644; J1815; J2001; J2270; J2405; J2543; J2704; J7030; L1812; P9016; P9040; Q0162; Q0163; Q3014